=== PATIENT | male | born 1970 | race Caucasian/White ===

== ENCOUNTER 2017-10-20 07:45 | Outpatient (CLI) | payer BC | END 2017-10-20 07:46 | disposition home or self-care (01) | LOC: BICMRI 07:45 | PROVIDERS: ATTEND Neurological Surgery | DX: M25.511 Pain in right shoulder (principal); M67.80 Other specified disorders of synovium and tendon, unspecified site; S46.911A Strain of unspecified muscle, fascia and tendon at shoulder and upper arm level, right arm, initial encounter ==

== ENCOUNTER 2017-10-27 10:37 | Outpatient (CLI) | payer BC ==
--- NOTE | 2017-10-27 11:55 | RAD ---
THREE VIEWS CERVICAL SPINE: Date: 10-27-17 Comparison: None. History: Cervical spine pain, pain radiating down to the right arm. FINDINGS: The neutral lateral exam demonstrates anterolisthesis of C2 on C3 measuring 3 mm, C3 on C4 measuring 4 mm. There is retrolisthesis at C5-6 on neutral imaging measuring approximately 3 mm. With flexion t here is anterolisthesis of C2 on C3 measuring 4 mm and of C3 on C4 measuring 4 mm. The retrolisthesis at C5-6 is not seen with flexion. With extension, anterolisthesis of C2 on C3 measures 3 mm and ante rolisthesis of C3 on C4 measures 4 mm. The retrolisthesis at C5-6 on extension imaging measures 4 mm. There is disc space narrowing with anterior osteophyte formation at C3-4, C4-5, and C5-6. No prevert ebral soft tissue swelling. IMPRESSION: Areas of anterolisthesis and retrolisthesis within the cervical spine as described above. POS: BENEDICTO
== END 2017-10-27 10:38 | disposition home or self-care (01) ==
LOC: TBSIIMAG 10:37
PROVIDERS: ATTEND Neurological Surgery
DX: M54.2 Cervicalgia (principal); M43.12 Spondylolisthesis, cervical region
CPT/HCPCS: 72040

== ENCOUNTER 2019-10-28 09:08 | Inpatient (IN) | payer BC ==
[2019-10-28 09:36] LABS: #Eosinphils 0.1 thou/uL (0.0-0.7); #Lymphocytes 1.2 thou/uL (1.20-3.40); #Neutrophils 12.1 thou/uL (1.40-6.50); %Basophils 0.3 % (0.0-1.0); %Eosinophils 0.5 % (0.0-10.0); %Lymphocytes 8.4 % (21.0-51.0); %Monocytes 6.7 % (0.0-10.0); %Neutrophils 84.1 % (42.0-75.0); Hemoglobin 15.1 g/dL (14.0-18.0); Mean Corpuscular HGB CONC 33.7 g/dL (32.0-36.0); Mean Corpuscular Hemoglobin 28.6 pg (27.0-31.0); Mean Corpuscular Volume 84.9 fL (78.0-98.0); Mean Platelet Volume 8.8 fL (7.4-10.4); Platelet Count 297 thou/uL (130-400); RBC Distribution Width 13.8 % (11.5-14.5); Red Blood Cell (RBC) Count 5.27 mill/uL (4.70-6.10); White Blood Cell (WBC) Count 14.4 thou/uL (4.8-10.8)
--- NOTE | 2019-10-28 09:39 | RAD ---
Exam: Chest one view HISTORY:Cough Comparison: 11/07/2004 FINDINGS: Cardiac silhouette: Normal Aorta: Unremarkable Pulmonary vessels: Normal Costophrenic angles: Clear LUNGS: No masses or consolidation. Pneumothorax: None Osseous abnormalities: None IMPRESSION: No acute cardiopulmonary process.
[2019-10-28 09:58] LABS: ALT (SGPT) 31 U/L (8-55); AST (SGOT) 15 U/L (5-34); Albumin 3.8 g/dL (3.5-5.0); Alkaline Phosphatase 74 U/L (40-110); Anion Gap 15 mmol/L (10-20); BUN (Urea Nitrogen) 17 mg/dL (8.4-25.7); Bilirubin, Total 1.3 mg/dL (0.2-1.2); Calc. Creatinine Clearance 0 mL/min (70-130); Calcium 8.6 mg/dL (7.8-10.44); Carbon Dioxide 27 mmol/L (22-29); Chloride 98 mmol/L (98-107); Estimated GFR-MDRD 56; Globulin 3.1 g/dL (2.4-3.5); Glucose 210 mg/dL (70-105); Protein, Total 6.9 g/dL (6.0-8.3); Sodium 137 mmol/L (136-145)
[2019-10-28] MEDS ORDERED: Acetaminophen 500 MG TAB ONE (10:17)
[2019-10-28] MEDS ORDERED: Aspirin Chewable 81 MG TAB ONE (10:17)
[2019-10-28] MEDS ORDERED: Nitroglycerin 2% Ointment 1 INCH/1 GM Packet ONE (10:17)
[2019-10-28] MEDS ORDERED: Nitroglycerin 0.4 MG TAB 1 EACH ONE (10:17)
[2019-10-28 10:23] LABS: CKMB 5.9 ng/mL (0-6.6)
[2019-10-28] MEDS ORDERED: Enoxaparin Sodium 100 MG/ML SYRINGE ONE (11:06)
[2019-10-28 13:25] LABS: Troponin I 0.794 ng/mL (< 0.028)
[2019-10-28] MEDS ORDERED: Labetalol HCl 100 MG/20 ML VIAL SLOW IVP PRN (13:26)
[2019-10-28] MEDS ORDERED: Acetaminophen 325 MG TAB PO PRN (13:26)
[2019-10-28 14:25] VITALS: BMI 33.3
--- NOTE | 2019-10-28 14:52 | CON ---
DATE OF CONSULTATION: 10/28/2019 REASON FOR CONSULTATION: Elevated troponins and hypertension. HISTORY OF PRESENT ILLNESS: Mr. Sosa is a pleasant 49-year-old white gentleman, who comes to the hospital for lower extremity edema and shortness of breath. He was at home and has not been noticing for the last few weeks that he has to sleep with his head up. If he sleeps flat, he would wake up every hour and a half with shortness of breath and choking and he had to stand up and take deep breaths to feel better. He would lay back down for sleep in an hour and a half later the same thing would happen. He noticed his blood pressure was very high today and was having increased swelling, so he decided to come in for evaluation. I last saw Mr. Sosa in early 2017, at which point he was looking for a specialist to control his blood pressure. He told me at the same time he was seeing me that he was about to see a blood pressure specialist in [place] as he had very [id number] blood pressures. He was on several medications including hydralazine, clonidine, combination of valsartan and diuretics and his blood pressure is still in the 160s. An echocardiogram done at that time showed severe LVH with normal LV function, mild AI, mild MR. He followed up once after the echo, but then I have not seen him since. He apparently stopped all his medications in the last few months. I have a note from Dr. Sage back in August of 2019, at which point, he had not seen him in a year from that point and was on no blood pressure medications. He was started on nicardipine 30, and he has not seen him since. Currently, he denies any chest pain, tightness, or pressure. During his initial evaluation, troponins were elevated, so Cardiology has been consulted. PAST MEDICAL HISTORY: 1. Labile hypertension. 2. Hyperlipidemia. 3. Type 2 diabetes. 4. LVH. 5. Diastolic dysfunction. PAST SURGICAL HISTORY: None. FAMILY HISTORY: Noncontributory. OUTPATIENT MEDICATIONS: 1. Turmeric. 2. Nifedipine 30 mg a day. 3. Magnesium oxide 400 mg once a day. SOCIAL HISTORY: No alcohol, tobacco, or drugs. REVIEW OF SYSTEMS: A 12-point review of systems was done and was all negative unless stated in the History of Present Illness. PHYSICAL EXAMINATION: VITAL SIGNS: Temperature 98.2, pulse 105, respiratory rate 24, saturating 95% on room air, and blood pressure 184/116. GENERAL: Awake, alert, and oriented x3. No distress. HEENT: Normocephalic, atraumatic. NECK: Supple. LUNGS: Clear. CARDIOVASCULAR: S1 and S2. No S3. There is a positive S4. No murmurs or rubs. ABDOMEN: Soft. Positive bowel sounds. EXTREMITIES: 1+ edema. SKIN: Warm and dry. LABORATORY DATA: Laboratory work was reviewed. White count of 14, hemoglobin of 15, hematocrit of 44, and platelet count of 297. Chemistries; creatinine of 1.34 with GFR 56. His baseline has been in the 1 to 1.2 range. Potassium was low at 3.0. Troponin has been 0.74 and 0.79 with a BNP of 3368. IMAGING DATA: Chest x-ray was reviewed. No acute cardiopulmonary process. ASSESSMENT: 1. Hypertensive urgency. 2. Labile hypertension. 3. Noncompliance with medications. 4. Chronic kidney disease, stable. 5. Lower extremity edema, concern for left ventricular dysfunction. 6. Paroxysmal nocturnal dyspnea in the last few weeks. PLAN: 1. Blood pressure control. We will start some oral medications. This is probably the blood pressure he is running in the last few months. We will start with his hydralazine at 25 mg 3 times a day. Continue the nifedipine at 30. He is already started on losartan/hydrochlorothiazide at 50/12.5 daily as well. We would wean off the nifedipine drip if the blood pressure remains less than 180. 2. We will do an echocardiogram. 3. Continue to trend troponins, but most likely this is demand ischemia. Thank you for letting us to participate in the care of patient. We will follow. 30 minutes of critical care. Job ID: [id number]
[2019-10-28] MEDS: Potassium Chloride 20 MEQ TAB PO SCH (15:05)
[2019-10-28] MEDS: hydrALAZINE 25 MG TAB PO SCH ×2 (15:06→20:06)
--- NOTE | 2019-10-28 15:21 | HP ---
PRIMARY CARE PHYSICIAN: Dr. Gandhi CHIEF COMPLAINT: My legs are swollen. HISTORY OF PRESENT ILLNESS: Mr. Sosa is a pleasant 49-year-old gentleman, who has a history of he says resistant hypertension. He was in his usual state of health until about a week ago. Last Tuesday, he said he was diagnosed with pneumonia. Prior to that, he was having some cough and congestion and a little bit of shortness of breath primarily with the coughing. He says that he went to see his primary care physician at that time and it was noted that his blood pressure was around 220/120. He says he had not been really too worried about that because he has severe high blood pressure in the past. He says he has been to see multiple specialist. He says he has even seen a hypertension specialist in [place], whom they were never able to control his blood pressure. He says he got to the point where he just stopped taking the medicines because he says they were not helping anyway. More recently, he has seen Dr. Sage for his blood pressure, but he had seen Dr. Shaver and Dr. Sahu as well. He says that he came to the ER this time because he noticed swelling in his lower extremities. He denies any leg pain and he says he occasionally will wake up with some dyspnea, but it is not often. He says that because his legs were swelling, he knew it could be blood pressure problems and came to the ER. When he was seen in the emergency room, his blood pressure was found to be severely elevated with systolics in the 250s and diastolic in the 150 range. He was given 3 sublingual nitroglycerin and nitro patch was placed and he is being admitted for further evaluation. Currently, the patient says he feels fine. He says he feels healthy "in his own mind" and no other additional complaints. REVIEW OF SYSTEMS: All systems were reviewed and are negative except for that mentioned in the history of present illness. PAST MEDICAL HISTORY: Significant for hypertension. PAST SURGICAL HISTORY: Negative. ALLERGIES: TO PENICILLIN. SOCIAL HISTORY: He is . He has a son, who is 26 years old. He is a nonsmoker. He says he occasionally smokes marijuana. He does drink alcohol, but very rarely. He would like to be a full code and his mother or son could be his surrogate decision maker. FAMILY HISTORY: He says it is unknown because he is adopted. MEDICATIONS: Prior to admission, he had been on nifedipine 30 mg and losartan 50/12.5 on tablet daily and cefdinir 300 mg twice a day. PHYSICAL EXAMINATION: GENERAL: He is alert and oriented. He appears to be in no acute distress. He is lying up on the stretcher, watching TV, laughing and making jokes. His significant other is at the bedside. VITAL SIGNS: His blood pressure was 244/161, heart rate 115, respiratory rate of 20, and temperature is 98.1. HEENT: His head is atraumatic, normocephalic. Pupils are equal, round, and reactive to light. Extraocular muscles are intact. His sclerae are anicteric. Throat; no erythema, no exudates. NECK: No adenopathy. No bruits. He does have increased jugular venous distention. CARDIOVASCULAR: He has a normal S1 and S2. He did have an S4 and the PMI was laterally displaced. I did not appreciate any murmurs, however. No clicks or rubs. ABDOMEN: Soft. It is nontender, obese. Positive for bowel sounds. No rebound. No guarding. No organomegaly. EXTREMITIES: He has 2+ pitting edema bilaterally. There is no calf tenderness. No joint effusions. NEUROLOGIC: Grossly nonfocal with his muscle strength being 5/5 in both his upper and lower extremities. SKIN AND INTEGUMENT: No skin changes. No rash. LABORATORY DATA: The white blood cell count is 14.4, hemoglobin 15.1, hematocrit is 44.8, and platelet count is 297. The sodium was 137, potassium 3.0, chloride is 98, CO2 is 27, BUN of 17, creatinine 1.34, and glucose is 210. Troponin 0.745. BNP is 3368. IMAGING DATA: His EKG is sinus rhythm. The rate is 115. He does have voltage criteria for LVH and some nonspecific ST-T wave changes. His chest x-ray, he has cardiomegaly and increased pulmonary vascular marking. ASSESSMENT AND PLAN: 1. This is a pleasant 49-year-old gentleman, who presents with hypertensive emergency due to the shear elevation of his blood pressure as well as an elevation of his troponin. He will be admitted to the ICU, started on a Cardene drip. We will try to maintain his pressure initially around 180s to 190 systolic. An echocardiogram will be obtained. We will continue to trend his cardiac enzymes and consult Cardiology for further recommendations. 2. Chronic kidney disease in the setting of severe hypertension. We will consult Dr. Sage for recommendations as well. 3. He will be placed on deep venous thrombosis and gastrointestinal prophylaxis. Job ID: [id number]
[2019-10-28 16:21] LABS: Critical Call Chem Troponin I RESULT DECREASING; Troponin I 0.774 ng/mL (< 0.028)
[2019-10-28] MEDS: niCARdipine 25 MG in Sodium Chloride 0.9% 250 ML 240 ML IVPB SCH ×2 (18:03→22:30)
[2019-10-28] MEDS: cloNIDine 0.1 MG TAB PO PRN (18:03)
[2019-10-28] MEDS: Famotidine 20 MG TAB PO SCH (20:06)
[2019-10-28] MEDS ORDERED: guaiFENesin 200 MG TAB PO PRN (20:48)
[2019-10-28] MEDS ORDERED: Cefdinir 300 MG CAP PO SCH (21:00)
[2019-10-29 03:43] LABS: #Basophils 0.1 thou/uL (0.0-0.2); #Eosinphils 0.2 thou/uL (0.0-0.7); #Lymphocytes 1.2 thou/uL (1.20-3.40); #Monocytes 0.9 thou/uL (0.11-0.59); %Basophils 0.5 % (0.0-1.0); %Eosinophils 1.8 % (0.0-10.0); %Lymphocytes 11.1 % (21.0-51.0); %Neutrophils 77.7 % (42.0-75.0); Hemoglobin 13.4 g/dL (14.0-18.0); Mean Corpuscular HGB CONC 32.9 g/dL (32.0-36.0); Mean Corpuscular Hemoglobin 28.2 pg (27.0-31.0); Mean Corpuscular Volume 85.7 fL (78.0-98.0); Mean Platelet Volume 8.8 fL (7.4-10.4); Platelet Count 255 thou/uL (130-400); RBC Distribution Width 13.9 % (11.5-14.5); Red Blood Cell (RBC) Count 4.77 mill/uL (4.70-6.10); White Blood Cell (WBC) Count 10.3 thou/uL (4.8-10.8)
[2019-10-29 03:50] LABS: Anion Gap 11 mmol/L (10-20); BUN (Urea Nitrogen) 14 mg/dL (8.4-25.7); Calc. Creatinine Clearance 101 mL/min (70-130); Calcium 8.1 mg/dL (7.8-10.44); Carbon Dioxide 28 mmol/L (22-29); Chloride 105 mmol/L (98-107); Estimated GFR-MDRD 67; Glucose 166 mg/dL (70-105); Sodium 141 mmol/L (136-145)
[2019-10-29] MEDS: hydrALAZINE 20 MG/ML VIAL SLOW IVP PRN (03:59)
--- NOTE | 2019-10-29 07:09 | PRG ---
DATE OF SERVICE: 10/29/2019 SERVICE: Renal Medicine. SUBJECTIVE: Mr. Sosa is a 49-year-old white male, who was admitted for labile hypertension. He has also had superimposed acute kidney injury at that time and the feeling was that this was hemodynamically-mediated renal dysfunction. Renal function this morning is much improved and near normal. His blood pressure is also well controlled. He was also seen by Cardiology, Dr. Sahu, due to the high blood pressure as well as elevated troponin I. The patient's blood pressure medications have been adjusted. He has a cardiac echo, which showed the decreased EF. For that reason, carvedilol has been started with this patient. The patient voices no new complaints. No chest pain or shortness of breath. OBJECTIVE: VITAL SIGNS: Blood pressure 155/97, heart rate 86, respiratory rate is 17, pulse ox 96%. GENERAL: Awake, alert, comfortable, not in overt distress. SKIN: Adequate turgor. HEENT: He has pinkish conjunctivae. Anicteric sclerae. NECK: No neck mass. No carotid bruits. No JVD. CHEST: No deformities. LUNGS: Clear breath sounds. No wheezing. No crackles. HEART: Normal sinus rhythm. No murmur. No gallops. No rubs. ABDOMEN: Globular, soft, nontender. No masses. EXTREMITIES: No edema. No deformities. MEDICATIONS: Medications of October 29, 2019 reviewed. LABORATORY DATA: Laboratories of October 29, 2019; white count 10.3, hemoglobin 13.4. Sodium 141, potassium 3, chloride 105, carbon dioxide 28, BUN 14, creatinine 1.15, calcium 8.1, and glucose 166. Troponin I 0.774. BNP 3368. IMAGING STUDIES: Cardiac echo showed a decreased EF of 40% to 45%. Renal ultrasound with Doppler currently pending. ASSESSMENT AND PLAN: 1. Hypokalemia. Check plasma aldosterone and plasma renin. Rule out for secondary hyperaldosteronism with this patient. We will also recheck a magnesium level. Continue potassium supplementation. 2. Labile hypertension, improved. Continue current BP medications. 3. Acute kidney injury-superimposed hemodynamically-mediated renal dysfunction, much improved. Continue current management. 4. Decreased ejection fraction, currently on carvedilol. Cardiology is following. Job ID: [id number]
[2019-10-29] MEDS: Potassium Chloride 20 MEQ TAB PO SCH ×2 (08:23→16:05)
[2019-10-29] MEDS: Carvedilol 6.25 MG TAB PO SCH ×2 (08:23→16:06)
[2019-10-29] MEDS: NIFEdipine XL 30 MG TAB PO SCH (08:24)
[2019-10-29] MEDS: Famotidine 20 MG TAB PO SCH ×2 (08:24→20:20)
[2019-10-29] MEDS: hydrALAZINE 25 MG TAB PO SCH ×3 (08:24→20:20)
[2019-10-29] MEDS: Enoxaparin Sodium 40 MG/0.4 ML SYRINGE SC SCH (08:24)
[2019-10-29] MEDS: Cefdinir 300 MG CAP PO SCH ×2 (08:25→20:20)
--- NOTE | 2019-10-29 08:40 | PDOC.HOSPP ---
- Subjective Encounter Date: 10/29/19 Encounter Time: 08:38 Subjective: Mr. Ssoa was seen today in follow-up of hypertensive crisis. He does not have any complaints this morning. He denies chest pain or shortness of breath. He notes less leg swelling today. - Objective Vital Signs & Weight: Vital Signs (12 hours) Temp 10/29/19 05:00 98.0 F 10/29/19 00:00 98.3 F Weight Weight 199 lb 15.348 oz Most Recent Monitor Data Heart Rate from ECG 86 NIBP 155/97 NIBP BP-Mean 116 Respiration from ECG 17 SpO2 96 I&O: 10/28/19 10/29/19 10/30/19 06:59 06:59 06:59 Intake Total 2323 Output Total 6750 Balance -4427 Result Diagrams: 10/29/19 03:16 10/29/19 03:17 Hospitalist ROS - Medication Medications: Active Medications Generic Name Dose Route Start Last Admin Trade Name Freq PRN Reason Stop Dose Admin Acetaminophen 650 mg 10/28/19 13:26 10/28/19 15:06 Tylenol PO 650 mg Q4H PRN Administration Headache/Fever/Mild Pain (1-3) Carvedilol 12.5 mg 10/29/19 08:00 10/29/19 08:23 Coreg PO 12.5 mg BID-WM NIMA Administration Clonidine 0.1 mg 10/28/19 13:26 10/28/19 18:03 Catapres PO 0.1 mg Q4H PRN Administration SBP > _180___ Enoxaparin Sodium 40 mg 10/29/19 09:00 10/29/19 08:24 Lovenox SC 40 mg 0900 NIMA Administration Famotidine 20 mg 10/28/19 21:00 10/29/19 08:24 Pepcid PO 20 mg BID NIMA Administration Guaifenesin 200 mg 10/28/19 20:48 10/28/19 21:13 Organ-I Nr PO 200 mg Q4H PRN Administration Congestion Hydralazine HCl 10 mg 10/28/19 13:26 10/29/19 03:59 Apresoline SLOW IVP 10 mg Q4H PRN Administration SBP > 180 and HR < 70 Hydralazine HCl 25 mg 10/28/19 15:00 10/29/19 08:24 Apresoline PO 25 mg TID NIMA Administration Nifedipine 30 mg 10/29/19 09:00 10/29/19 08:24 Procardia Xl PO 30 mg DAILY NIMA Administration Cefdinir 300 Mg Cap 0 each 10/29/19 09:00 10/29/19 08:25 PO 1 each BID NIMA Administration Potassium Chloride 40 meq 10/28/19 17:00 10/29/19 08:23 K-Dur PO 40 meq BID-WM NIMA Administration - Exam Eye: PERRL, anicteric sclera Heart: RRR, no murmur, no rubs, normal peripheral pulses Heart - other findings: +S4 Respiratory: CTAB, no wheezes, no rales, no ronchi, normal chest expansion, no tachypnea, normal percussion Gastrointestinal: soft, non-tender, non-distended, normal bowel sounds, no palpable masses, no hepatomegaly Extremities: no cyanosis, no clubbing, 1+ LE edema Neurological: no focal deficits Psychiatric: normal affect, A&O x 3 Hosp A/P (1) Hypertensive crisis Code(s): I16.9 - HYPERTENSIVE CRISIS, UNSPECIFIED Status: Acute (2) Chronic systolic (congestive) heart failure Code(s): I50.22 - CHRONIC SYSTOLIC (CONGESTIVE) HEART FAILURE Status: Chronic (3) Obesity (BMI 30.0-34.9) Code(s): E66.9 - OBESITY, UNSPECIFIED Status: Chronic - Plan * Hypertensive crisis- continue Cardene drip, and will re-start his home medications- * Wean the drip as tolerated * Await work-up for Hyperaldosteronism * Chronic systolic heart failure- compensated- likely due to uncontrolled blood pressure * Replace potassium * Nephrology and Cardiology input appreciated * [facility] consult for calorie restriction and healthier weight
--- NOTE | 2019-10-29 08:48 | ULT ---
ULTRASOUND RETROPERITONEUM COMPLETE (RENAL) DOPPLER DUPLEX: DATE: 10/29/2018 HISTORY: 49-year-old male with chronic renal failure. TECHNIQUE: Lozano scale, color flow, and spectral analysis of bilateral kidneys and select renal artery segments a nd branches. FINDINGS: Highest peak systolic velocities in cm/s: Right renal artery: 52 Left renal artery: 40 Aorta: 56 Renal artery/aorta ratio: Right: 0.94 Left: 0.72 Resistive index: Right arcuate: 0.64 Left arcuate: 0.66 Right Kidney: 10.5 x 5.5 x 5.5 cm. Left Kidney: 11.0 x 6.0 x 6.0 cm. 2.5 x 2.5 x 2.5 cm right renal mid pole parenchymal cyst. No hydronephrosis. Urinary bladder not evaluated. IMPRESSION: 1. No hydronephrosis. 2. 2.5 cm right renal cyst. 3. No evidence of renal arterial hypertension. JN R POS: OFF
[2019-10-29] MEDS ORDERED: Prevnar 13-Val Conj/PF 0.5 ML SYRINGE IM ONE (09:00)
[2019-10-29] MEDS ORDERED: niCARdipine 25 MG in Sodium Chloride 0.9% 250 ML 240 ML IVPB SCH (09:15)
--- NOTE | 2019-10-29 09:53 | CON ---
DATE OF CONSULTATION: HISTORY OF PRESENT ILLNESS: Mr. Sosa is a 49-year-old white male with known history of labile hypertension and was admitted due to generalized edema. He initially presented to his primary care with some leg swelling. He was started on losartan with hydrochlorothiazide at that time. He has also been evaluated for high blood pressure by his dialysis specialist. We have seen this patient at clinic for further management of his hypertension. REVIEW OF SYSTEMS: Positive for leg edema. Denies any chest pain or shortness of breath. Occasional cough. No nausea. No vomiting. No diarrhea. No constipation. No dysuria. No urinary frequency. No hematochezia. No melena. No hematemesis. No headache. No diplopia. No syncopal episode. No shortness of breath. Appetite and energy level are fair. No headache. HOME MEDICATIONS: Include, 1. Losartan/hydrochlorothiazide 50/12.5 once a day. 2. Nifedipine 30 mg XL tablet once a day. HOSPITAL MEDICATIONS: Include the following; 1. Nifedipine 30 mg daily. 2. Nicardipine drip. 3. Labetalol 20 mg IV q.4 hours. 4. Hydralazine 25 mg p.o. t.i.d. 5. Lovenox 40 mg subcu daily. 6. Clonidine 0.1 mg q.4 p.r.n. 7. Acetaminophen 650 mg q.4. 8. KCl 40 mEq p.o. b.i.d. PAST MEDICAL HISTORY: Longstanding history of hypertension. PAST SURGICAL HISTORY: No significant surgeries. ALLERGIES: PENICILLIN. SOCIAL HISTORY: The patient lives in [place]. He has one child, who is 26 years old. He occasionally smokes marijuana, but no alcohol or any tobacco use at the present time. His education, some college courses. 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 He is , but has currently a live-in girlfriend. TRAUMA: None. IMMUNIZATIONS: Up-to-date. HOSPITALIZATIONS: Please see past medical history. FAMILY HISTORY: No family history of ESRD. PHYSICAL EXAMINATION: VITAL SIGNS: Blood pressure currently is 160/107 with heart rate of 101, respiratory rate 17, temperature is 98.2, and O2 saturation 96%. GENERAL: Noted to be awake, alert, sitting comfortable, not in distress. SKIN: Adequate turgor. HEENT: He has a pinkish conjunctivae. Anicteric sclerae. No neck mass. No carotid bruits. No JVD. CHEST: No deformities. LUNGS: Clear breath sounds. No wheezing. No crackles. HEART: Normal sinus rhythm. No murmur. No gallops. No rubs. ABDOMEN: Globular, soft, nontender. No masses. EXTREMITIES: No edema. No deformities. NEUROLOGIC: Awake, oriented to 3 spheres. Moving all extremities. No tremors. No asterixis. No ataxia. LABORATORY DATA: Laboratories of October 28, 2019; sodium 137, potassium 3, chloride 98, carbon dioxide 27, BUN 17, creatinine 1.34, GFR 56 mL/minute, glucose 210, calcium 8.6, AST 15, ALT 31. BNP is 3386. Troponin I 0.774. Cardiac echo shows an EF of 40% to 45%, evidence of diastolic dysfunction. Chest x-ray shows no CHF or infiltrates. ASSESSMENT AND PLAN: 1. Hypokalemia, p.r.n. potassium replacement. 2. Labile hypertension-I am unclear what workup was done by his physician back in [place]. Due to the hypokalemia, which should be a reflection of the current diuretic regimen, we may need to rule out the possibility of a primary hyperaldosteronism with this patient. We will order aldosterone and plasma renin with this patient. For the moment, agree with current management. Due to the decreased EF, I would probably suggest restart him on Carvedilol at 12.5 mg tablet b.i.d. 3. He will continue the other antihypertensive regimen. We will also order a renal ultrasound with Doppler studies with this patient. 4. Acute kidney injury-this simply may be a hemodynamically-mediated renal dysfunction. His urine sediment was benign. In addition, the protein spillage is very minimal to cause any anasarca for this patient. Overall, agree with current management. Job ID: [id number] MTDD
--- NOTE | 2019-10-29 14:03 | PDOC.CPN ---
- Subjective Date: 10/29/19 Time: 14:00 Interval history: He is doing much better. BP better controlled. No chest pain, SOB has improved. - Review of Systems General: denies: fever/chills, weight/appetite/sleep changes, night sweats, fatigue Respiratory: denies: cough, congestion, shortness of breath, exercise intolerance Cardiovascular: denies: chest pain, palpitation, edema, paroxysmal nocturnal dyspnea, orthopnea Gastrointestinal: denies: nausea, vomiting, diarrhea, constipation, abd pain, GI bleeding Musculoskeletal: denies: pain, tenderness, stiffness, swelling, arthritis/ arthralgias Neurological: denies: numbness, syncope, seizure, weakness - Objective Allergies/Adverse Reactions: Allergies Allergy/AdvReac Type Severity Reaction Status Date / Time Penicillins Allergy Verified 10/28/19 11:14 Visit Medications: Current Medications Acetaminophen (Tylenol) 650 mg PO Q4H PRN PRN Reason: Headache/Fever/Mild Pain (1-3) Last Admin: 10/28/19 15:06 Dose: 650 mg Carvedilol (Coreg) 12.5 mg PO BID-[facility] Last Admin: 10/29/19 08:23 Dose: 12.5 mg Clonidine (Catapres) 0.1 mg PO Q4H PRN PRN Reason: SBP > _180___ Last Admin: 10/28/19 18:03 Dose: 0.1 mg Enoxaparin Sodium (Lovenox) 40 mg SC 0900 [facility] Last Admin: 10/29/19 08:24 Dose: 40 mg Famotidine (Pepcid) 20 mg PO BID [facility] Last Admin: 10/29/19 08:24 Dose: 20 mg Guaifenesin (Organ-I Nr) 200 mg PO Q4H PRN PRN Reason: Congestion Last Admin: 10/28/19 21:13 Dose: 200 mg HCTZ/Losartan Potassium (Hyzaar 50/12.5) 1 tab PO DAILY [facility] Last Admin: 10/29/19 09:51 Dose: 1 tab Hydralazine HCl (Apresoline) 10 mg SLOW IVP Q4H PRN PRN Reason: SBP > 180 and HR < 70 Last Admin: 10/29/19 03:59 Dose: 10 mg Hydralazine HCl (Apresoline) 25 mg PO TID [facility] Last Admin: 10/29/19 08:24 Dose: 25 mg Nicardipine HCl 25 mg/ Sodium (Chloride) 250 mls @ 0 mls/hr IVPB INF NIMA; Protocol Labetalol HCl (Normodyne) 20 mg SLOW IVP Q4H PRN PRN Reason: SBP > 180 and HR >/= 70 Nifedipine (Procardia Xl) 30 mg PO DAILY [facility] Last Admin: 10/29/19 08:24 Dose: 30 mg Cefdinir 300 Mg Cap 0 each PO BID [facility] Last Admin: 10/29/19 08:25 Dose: 1 each Potassium Chloride (K-Dur) 40 meq PO BID-[facility] Last Admin: 10/29/19 08:23 Dose: 40 meq Vital Signs & Weight: Vital Signs Temp Pulse Ox 10/29/19 08:00 98.4 F 95 10/29/19 05:00 98.0 F Weight 199 lb 15.348 oz - Physical Exam General: alert & oriented x3 HEENT: mucus membranes moist Neck: supple neck Cardiac: regular rate and rhythm Lungs: clear to auscultation Neuro: grossly intact Abdomen: active bowel sounds Extremities: 1+ LE edema Skin: clear Musculoskeletal: no pain - Labs Result Diagrams: 10/29/19 03:16 10/29/19 03:17 Troponin/CKMB CK-MB (CK-2) 5.9 ng/mL (0-6.6) 10/28/19 09:27 Troponin I 0.774 ng/mL (< 0.028) H* 10/28/19 15:29 - Telemetry Sinus rhythms and dysrhythmias: sinus rhythm - Assessment/Plan Assessment/Plan: 1. HTN urgency 2. Acute on chronic systolic and diastolic CHF 3. Medication non compliance. 4. Labile HTN 5. Chronic kidney disease. 6. Systolic dysfunction EF at 40-45% 7. NSTEMI, type 2 demand ischemia most likely. 8. LVH 9. Hypokalemia PLAN: - Continue current meds for BP control - Creatinine normal now. - Once he is able to lay flat will plan on risk stratification with [facility]. - Secondary work up for HTN as he is hypokalemic. Plasma renin, aldosterone level, plasma metanephrines. Renal doppler US/may need MRI if images not adequate. - Critical Care Time Critical care time (mins): 30
[2019-10-29] MEDS ORDERED: guaiFENesin ER 600 MG TAB PO SCH (15:15)
--- NOTE | 2019-10-30 02:23 | CON ---
DATE OF CONSULTATION: HISTORY OF PRESENT ILLNESS: Mr. Sosa is a very pleasant gentleman, says he has had hypertension for quite some time and had difficulty controlling his blood pressure. He has never had a sleep study. He said he had one in the distant past. He presented with complaints of shortness of breath, stating that he is unable to lie down flat. He is blaming this on an antibiotic he had received. He has not been compliant with followup with his clearance representative. He does have a history of severe left ventricular hypertrophy. PAST MEDICAL HISTORY: Remarkable also for lipid disorder, diabetes, and diastolic dysfunction. SOCIAL HISTORY: He is a nonsmoker and nondrinker. REVIEW OF SYSTEMS: Ten point review of systems otherwise negative. MEDICATIONS: Have been reviewed. PHYSICAL EXAMINATION: VITAL SIGNS: Currently, blood pressure is controlled; apparently, it was very elevated on admission, it is 146/99, heart rate 84, oximetry is 94% on room air. He is afebrile. HEENT: Pupils are equal. Sclerae are anicteric. NECK: Supple. No lymphadenopathy. LUNGS: Clear. HEART: Regular rhythm. S1, S2 are normal. ABDOMEN: Soft and nontender. EXTREMITIES: Without clubbing, cyanosis, or edema. LABORATORY DATA: White count 10.3, hemoglobin 13.4, platelets 255. Sodium 141, potassium 3, chloride 105, bicarb 28, BUN 14, creatinine 1.15. IMPRESSION: 1. Poorly-controlled hypertension. 2. Hypertensive diastolic dysfunction with left ventricular hypertrophy. 3. Possible sleep apnea, which may make his blood pressure a little more difficult to control if he is not treating his sleep apnea. 4. Elevated creatinine yesterday, it is normalized today. I met with Mr. Sosa, answered all of his questions. I will be happy to follow while he is in the hospital. At discharge, I would be happy to set him up for an outpatient sleep study; a home study may be of the best start and is likely to be met with more compliance. Job ID: [id number]
[2019-10-30] MEDS: hydrALAZINE 20 MG/ML VIAL SLOW IVP PRN (04:06)
[2019-10-30 04:35] LABS: Anion Gap 11 mmol/L (10-20); BUN (Urea Nitrogen) 22 mg/dL (8.4-25.7); Calc. Creatinine Clearance 78 mL/min (70-130); Calcium 8.4 mg/dL (7.8-10.44); Carbon Dioxide 27 mmol/L (22-29); Chloride 106 mmol/L (98-107); Estimated GFR-MDRD 52; Glucose 146 mg/dL (70-105); Potassium 3.5 mmol/L (3.5-5.1); Sodium 140 mmol/L (136-145)
[2019-10-30] MEDS: cloNIDine 0.1 MG TAB PO PRN (04:45)
[2019-10-30] MEDS ORDERED: diphenhydrAMINE 50 MG CAP PO SCH (05:30)
[2019-10-30] MEDS: Enoxaparin Sodium 40 MG/0.4 ML SYRINGE SC SCH (07:32)
[2019-10-30] MEDS: Carvedilol 6.25 MG TAB PO SCH ×2 (07:33→17:14)
[2019-10-30] MEDS: Potassium Chloride 20 MEQ TAB PO SCH ×2 (07:33→17:14)
[2019-10-30] MEDS: Famotidine 20 MG TAB PO SCH ×2 (07:33→21:03)
[2019-10-30] MEDS: NIFEdipine XL 30 MG TAB PO SCH (08:50)
[2019-10-30] MEDS: hydrALAZINE 25 MG TAB PO SCH ×3 (08:51→21:03)
[2019-10-30] MEDS: guaiFENesin ER 600 MG TAB PO SCH ×2 (08:51→21:04)
[2019-10-30] MEDS: Cefdinir 300 MG CAP PO SCH ×2 (08:51→21:06)
--- NOTE | 2019-10-30 08:51 | PDOC.HOSPP ---
- Subjective Encounter Date: 10/30/19 Encounter Time: 08:49 Subjective: Mr. Sosa was seen today in follow-up of hypertensive crisis. He does not have any new complaints. He isbeginning to become a bit worried about his blood pressure. - Objective Vital Signs & Weight: Vital Signs (12 hours) Pulse Resp BP Pulse Ox 10/30/19 08:04 91 15 98 10/30/19 07:33 157/106 H 10/30/19 04:45 162/121 H 10/30/19 04:06 85 162/121 H 10/30/19 00:56 85 19 93 L Weight Weight 201 lb 8.04 oz Most Recent Monitor Data Heart Rate from ECG 87 NIBP 162/121 NIBP BP-Mean 134 Respiration from ECG 20 SpO2 93 I&O: 10/29/19 10/30/19 10/31/19 06:59 06:59 06:59 Intake Total 2323 1510 Output Total 6750 1400 Balance -4427 110 Result Diagrams: 10/29/19 03:16 10/30/19 04:01 Hospitalist ROS - Medication Medications: Active Medications Generic Name Dose Route Start Last Admin Trade Name Freq PRN Reason Stop Dose Admin Acetaminophen 650 mg 10/28/19 13:26 10/28/19 15:06 Tylenol PO 650 mg Q4H PRN Administration Headache/Fever/Mild Pain (1-3) Albuterol/Ipratropium 3 ml 10/29/19 19:00 10/30/19 08:04 Duoneb NEB 3 ml [id number] NIMA Administration Carvedilol 12.5 mg 10/29/19 08:00 10/30/19 07:33 Coreg PO 12.5 mg BID-WM NIMA Administration Clonidine 0.1 mg 10/28/19 13:26 10/30/19 04:45 Catapres PO 0.1 mg Q4H PRN Administration SBP > _180___ Enoxaparin Sodium 40 mg 10/29/19 09:00 10/30/19 07:32 Lovenox SC 40 mg 0900 NIMA Administration Famotidine 20 mg 10/28/19 21:00 10/30/19 07:33 Pepcid PO 20 mg BID NIMA Administration Guaifenesin 200 mg 10/28/19 20:48 10/28/19 21:13 Organ-I Nr PO 200 mg Q4H PRN Administration Congestion HCTZ/Losartan Potassium 1 tab 10/29/19 09:00 10/29/19 09:51 Hyzaar 50/12.5 PO 1 tab DAILY NIMA Administration Hydralazine HCl 10 mg 10/28/19 13:26 10/30/19 04:06 Apresoline SLOW IVP 10 mg Q4H PRN Administration SBP > 180 and HR < 70 Hydralazine HCl 25 mg 10/28/19 15:00 10/29/19 20:20 Apresoline PO 25 mg TID NIMA Administration Nifedipine 30 mg 10/29/19 09:00 10/29/19 08:24 Procardia Xl PO 30 mg DAILY NIMA Administration Cefdinir 300 Mg Cap 0 each 10/29/19 09:00 10/29/19 20:20 PO 1 each BID NIMA Administration Potassium Chloride 40 meq 10/28/19 17:00 10/30/19 07:33 K-Dur PO 40 meq BID-WM NIMA Administration - Exam Eye: PERRL Heart: RRR, no murmur, no gallops, no rubs, normal peripheral pulses Respiratory: CTAB, no wheezes, no rales, no ronchi, normal chest expansion Gastrointestinal: soft, non-tender, non-distended, normal bowel sounds, no palpable masses, no hepatomegaly Extremities: no cyanosis, no clubbing (trace pedal edema) Hosp A/P (1) Hypertensive crisis Code(s): I16.9 - HYPERTENSIVE CRISIS, UNSPECIFIED Status: Acute (2) Chronic systolic (congestive) heart failure Code(s): I50.22 - CHRONIC SYSTOLIC (CONGESTIVE) HEART FAILURE Status: Chronic (3) Obesity (BMI 30.0-34.9) Code(s): E66.9 - OBESITY, UNSPECIFIED Status: Chronic - Plan * Hypertensive crisis- he has been weaned off Cardene. Dr. Sage has recommended starting Minoxidil * I have discussed potential adverse reaction to different blood pressure medications, and discussed alternative to dealing with the symptoms, if this is affecting his compliance * Work-up for secondary causes of HTN is in progress * Agree with Outpatient sleep study * Chronic systolic heart failure- compensated- likely due to uncontrolled blood pressure
--- NOTE | 2019-10-30 08:55 | PRG ---
DATE OF SERVICE: 10/30/2019 SERVICE: Renal Medicine. SUBJECTIVE: Mr. Sosa is a 49-year-old white male, followed up by the Renal Service for his acute kidney injury as well as labile hypertension. Creatinine has been fluctuating. His creatinine has improved to normal, but losartan/hydrochlorothiazide was restarted and the creatinine is noted to be slightly higher at 1.44. This most likely a reflection of those 2 medications. Blood pressure is slightly not well controlled. Renal ultrasound with Doppler study showed within normal findings with no evidence of renovascular hypertension. He also was found to be hypokalemic. For that reason, a plasma aldosterone and plasma renin have been ordered. It is still currently pending. No new complaints today. He is feeling better. OBJECTIVE: VITAL SIGNS: Blood pressure is 157/106, heart rate 91, respiratory rate 18, O2 saturation 98%. GENERAL: Awake, alert, comfortable, not in distress. SKIN: Adequate turgor. HEENT: He has a pinkish conjunctivae. Anicteric sclerae. NECK: No neck mass. No carotid bruits. No JVD. CHEST: No deformities. LUNGS: Clear breath sounds. No wheezing. No crackles. HEART: Normal sinus rhythm. No murmur. No gallops. No rubs. ABDOMEN: Globular, soft, nontender. No masses. EXTREMITIES: No edema. No deformities. MEDICATIONS: Medications of October 30, 2019, were reviewed. LABORATORY DATA: Laboratories of October 29, 2019, white count 10.3, hemoglobin 13.4. October 30, 2019, sodium 140, potassium 3.5, chloride 106, carbon dioxide 27, BUN 22, creatinine 1.44, calcium is 8.4. ASSESSMENT AND PLAN: 1. Labile hypertension-plasma aldosterone and plasma renin are pending. We will proceed with a 24-hour urine for aldosterone and for 5-HIAA. We will rule out this patient for any underlying secondary hypertension. Please note, renal artery Doppler showed no evidence of renal artery stenosis. I have decided to add minoxidil 2.5 mg tablet q.a.m. for better blood pressure control. Once I finished a 24-hour urine for aldosterone, we will start him on spironolactone 25 mg tablet once a day. 2. Acute kidney injury, fluctuating creatinine. Most likely a reflection of losartan/hydrochlorothiazide. Continue to observe. 3. Agree with current management. Recheck basic metabolic panel in a.m. Job ID: [id number]
[2019-10-30] MEDS ORDERED: Minoxidil 2.5 MG TAB PO SCH (09:00)
--- NOTE | 2019-10-30 22:57 | PRG ---
DATE OF SERVICE: 10/30/2019 SUBJECTIVE: Korey Sosa has no complaints. He denies being short of breath. He says that for the last 2 years, he has intermittently been wheezing. OBJECTIVE: VITAL SIGNS: He is afebrile. Heart rate is in the 90s, blood pressure 135/74, oximetry is 98% on room air. LUNGS: Actually remarkable for faint wheezes, more on the right than on the left posteriorly. HEART: Regular rhythm. ABDOMEN: Soft and nontender. EXTREMITIES: Without edema. LABORATORY DATA: White count 10.3, hemoglobin 13.4. Electrolytes are normal, creatinine is 1.44 up from yesterday of 1.15. Intake and output today was positive 110. IMPRESSION: 1. Poorly controlled hypertension. 2. ? untreated sleep apnea. 3. Acute on chronic kidney disease, likely related to his hypertension. 4. History of medical noncompliance. PLAN: Continue ongoing efforts to blood pressure control. He will need an outpatient sleep study. Job ID: [id number]
[2019-10-31 04:35] LABS: Anion Gap 12 mmol/L (10-20); BUN (Urea Nitrogen) 23 mg/dL (8.4-25.7); Calc. Creatinine Clearance 67 mL/min (70-130); Calcium 8.4 mg/dL (7.8-10.44); Carbon Dioxide 26 mmol/L (22-29); Chloride 105 mmol/L (98-107); Estimated GFR-MDRD 43; Glucose 126 mg/dL (70-105); Potassium 3.7 mmol/L (3.5-5.1); Sodium 139 mmol/L (136-145)
[2019-10-31] MEDS: Enoxaparin Sodium 40 MG/0.4 ML SYRINGE SC SCH (08:45)
[2019-10-31] MEDS: guaiFENesin ER 600 MG TAB PO SCH ×2 (08:46→21:25)
[2019-10-31] MEDS: hydrALAZINE 25 MG TAB PO SCH ×3 (08:46→21:25)
[2019-10-31] MEDS: Carvedilol 6.25 MG TAB PO SCH ×2 (08:47→18:01)
[2019-10-31] MEDS: Famotidine 20 MG TAB PO SCH ×2 (08:47→21:25)
[2019-10-31] MEDS: Potassium Chloride 20 MEQ TAB PO SCH ×2 (08:47→18:02)
[2019-10-31] MEDS: NIFEdipine XL 30 MG TAB PO SCH (08:47)
[2019-10-31] MEDS: Minoxidil 2.5 MG TAB PO SCH (08:50)
[2019-10-31] MEDS: Cefdinir 300 MG CAP PO SCH ×2 (08:50→21:26)
--- NOTE | 2019-10-31 08:57 | PRG ---
DATE OF SERVICE: 10/31/2019 SUBJECTIVE: Mr. Sosa is a 49-year-old white male with longstanding hypertension, admitted for labile hypertension as well as for an acute kidney injury. At that time, creatinine spontaneously improved. However, losartan was restarted and the creatinine has worsened again. No new complaints today. He is doing well. He is being worked up for secondary hypertension. Renal ultrasound with Doppler was negative. Awaiting 24 hour urine for pheochromocytoma as well as for hyperaldosteronism. His plasma aldosterone and plasma renin is still currently pending. He feels better. OBJECTIVE: VITAL SIGNS: Blood pressure 143/96, heart rate 86, respiratory rate 18, temperature 97.9, pulse ox 97%. GENERAL: Noted to be awake, alert, comfortable, not in overt distress. SKIN: Adequate turgor. HEENT: He has a pinkish conjunctivae. Anicteric sclerae. NECK: No neck mass. No carotid bruits. No JVD. CHEST: No deformities. LUNGS: Clear breath sounds. HEART: Normal sinus rhythm. No murmurs, gallops, or rubs. ABDOMEN: Globular, soft, nontender, no masses. EXTREMITIES: No edema. No deformities. MEDICATIONS: Medications of October 31, 2019, were reviewed. LABORATORY DATA: Laboratories of October 31, 2019; sodium 139, potassium 3.7, chloride 105, carbon dioxide 26, BUN 23, creatinine 1.68, glucose 126, calcium 8.4. ASSESSMENT AND PLAN: 1. Acute kidney injury-creatinine high at 1.68. We will discontinue losartan/hydrochlorothiazide. No indication for any dialytic intervention. Hold off any IV fluid for the moment. 2. Labile hypertension. In view of discontinuation of the losartan/hydrochlorothiazide, I have increased his minoxidil from 2.5 to 5 mg tablet once a day. Workup for secondary hypertension is undergoing, awaiting the 24 hour urine for aldosterone as well as pheochromocytoma workup. 3. Recheck basic metabolic profile and CBC in a.m. Job ID: [id number]
--- NOTE | 2019-10-31 11:11 | PDOC.HOSPP ---
- Subjective Encounter Date: 10/31/19 Encounter Time: 11:08 Subjective: Mr. Sosa was seen today in follow-up of hypertensive crisis. He says he feels great, like he could run a marathon. - Objective Vital Signs & Weight: Vital Signs (12 hours) Temp Pulse Resp BP BP BP Pulse Ox 10/31/19 08:47 88 163/94 H 10/31/19 08:46 88 10/31/19 07:52 98.0 F 88 12 163/94 H 99 10/31/19 07:50 98 10/31/19 07:48 93 16 98 10/31/19 03:35 97.9 F 86 18 143/96 H 97 10/31/19 01:58 100 10/30/19 23:10 85 132/87 Weight Weight 206 lb Most Recent Monitor Data Heart Rate from ECG 79 NIBP 133/91 NIBP BP-Mean 105 Respiration from ECG 7 SpO2 100 I&O: 10/30/19 10/31/19 11/01/19 06:59 06:59 06:59 Intake Total 1510 2210 Output Total 1400 2500 Balance 110 -290 Result Diagrams: 10/29/19 03:16 10/31/19 03:59 Hospitalist ROS - Medication Medications: Active Medications Generic Name Dose Route Start Last Admin Trade Name Freq PRN Reason Stop Dose Admin Acetaminophen 650 mg 10/28/19 13:26 10/28/19 15:06 Tylenol PO 650 mg Q4H PRN Administration Headache/Fever/Mild Pain (1-3) Albuterol/Ipratropium 3 ml 10/29/19 19:00 10/31/19 07:48 Duoneb NEB 3 ml [id number] NIMA Administration Carvedilol 12.5 mg 10/29/19 08:00 10/31/19 08:47 Coreg PO 12.5 mg BID-WM NIMA Administration Clonidine 0.1 mg 10/28/19 13:26 10/30/19 04:45 Catapres PO 0.1 mg Q4H PRN Administration SBP > _180___ Enoxaparin Sodium 40 mg 10/29/19 09:00 10/31/19 08:45 Lovenox SC 40 mg 0900 NIMA Administration Famotidine 20 mg 10/28/19 21:00 10/31/19 08:47 Pepcid PO 20 mg BID NIMA Administration Guaifenesin 200 mg 10/28/19 20:48 10/28/19 21:13 Organ-I Nr PO 200 mg Q4H PRN Administration Congestion Guaifenesin 600 mg 10/30/19 09:00 10/31/19 08:46 Mucinex PO 600 mg Q12HR NIMA Administration Hydralazine HCl 10 mg 10/28/19 13:26 10/30/19 04:06 Apresoline SLOW IVP 10 mg Q4H PRN Administration SBP > 180 and HR < 70 Hydralazine HCl 25 mg 10/28/19 15:00 10/31/19 08:46 Apresoline PO 25 mg TID NIMA Administration Minoxidil 5 mg 10/31/19 09:00 10/31/19 08:50 Minoxidil PO 5 mg DAILY NIMA Administration Nifedipine 30 mg 10/29/19 09:00 10/31/19 08:47 Procardia Xl PO 30 mg DAILY NIMA Administration Cefdinir 300 Mg Cap 0 each 10/29/19 09:00 10/31/19 08:50 PO 1 each BID NIMA Administration Potassium Chloride 40 meq 10/28/19 17:00 10/31/19 08:47 K-Dur PO 40 meq BID-WM NIMA Administration - Exam Eye: PERRL Heart: RRR, no murmur, no gallops, no rubs, normal peripheral pulses Respiratory: CTAB, no wheezes, no rales, no ronchi, normal chest expansion, no tachypnea, normal percussion Gastrointestinal: soft, non-tender, non-distended, normal bowel sounds, no palpable masses, no hepatomegaly Extremities: 1+ LE edema (trace pedal edema in the lower extremities) Hosp A/P (1) Hypertensive crisis Code(s): I16.9 - HYPERTENSIVE CRISIS, UNSPECIFIED Status: Acute (2) Chronic systolic (congestive) heart failure Code(s): I50.22 - CHRONIC SYSTOLIC (CONGESTIVE) HEART FAILURE Status: Chronic (3) Obesity (BMI 30.0-34.9) Code(s): E66.9 - OBESITY, UNSPECIFIED Status: Chronic - Plan * Hypertensive crisis- he has been weaned off Cardene.his blood pressure is much improved after the addition of Minoxidil * Awaiting the completion of the 24 hour urine * Acute kidney injury- I suspect related to the drop in his blood pressure- this should improve hopefully in a day ot 2 * Agree with Outpatient sleep study * Chronic systolic heart failure- compensated
--- NOTE | 2019-10-31 16:47 | PRG ---
DATE OF SERVICE: 10/31/2019 SUBJECTIVE: Mr. Sosa is in no distress. He is anticipating might go home today, but he is not sure. OBJECTIVE: VITAL SIGNS: He is afebrile. Heart rate is in the 90s, respiratory rate in the teens, oximetry is 96% on room air, and blood pressure is still intermittently elevated with diastolics as high as 102 this afternoon. LUNGS: Clear. HEART: Regular rhythm. ABDOMEN: Soft. IMPRESSION: ? Untreated sleep apnea. PLAN: Auto titrating CPAP tonight, if he is still here. Also, set him up for a home sleep study once he is out of here. We will treat him with auto titrating CPAP as an outpatient, if he has severe sleep apnea and then, we will probably do an in-house titration. Job ID: [id number]
--- NOTE | 2019-10-31 17:57 | PDOC.CPN ---
- Subjective Date: 10/31/19 Time: 17:54 Interval history: He feels well. No chest pain or SOB. BP still labile. Improved with ARB and diuretic but creatinine increased. - Review of Systems General: denies: fever/chills, weight/appetite/sleep changes, night sweats, fatigue Respiratory: denies: cough, congestion, shortness of breath, exercise intolerance Cardiovascular: denies: chest pain, palpitation, edema, paroxysmal nocturnal dyspnea, orthopnea Gastrointestinal: denies: nausea, vomiting, diarrhea, constipation, abd pain, GI bleeding Musculoskeletal: denies: pain, tenderness, stiffness, swelling, arthritis/ arthralgias Neurological: denies: numbness, syncope, seizure, weakness - Objective Allergies/Adverse Reactions: Allergies Allergy/AdvReac Type Severity Reaction Status Date / Time Penicillins Allergy Verified 10/28/19 11:14 Visit Medications: Current Medications Acetaminophen (Tylenol) 650 mg PO Q4H PRN PRN Reason: Headache/Fever/Mild Pain (1-3) Last Admin: 10/28/19 15:06 Dose: 650 mg Albuterol/Ipratropium (Duoneb) 3 ml NEB [id number] [facility] Last Admin: 10/31/19 13:19 Dose: 3 ml Carvedilol (Coreg) 12.5 mg PO BID-WM [facility] Last Admin: 10/31/19 08:47 Dose: 12.5 mg Clonidine (Catapres) 0.1 mg PO Q4H PRN PRN Reason: SBP > _180___ Last Admin: 10/30/19 04:45 Dose: 0.1 mg Enoxaparin Sodium (Lovenox) 40 mg SC 0900 [facility] Last Admin: 10/31/19 08:45 Dose: 40 mg Famotidine (Pepcid) 20 mg PO BID [facility] Last Admin: 10/31/19 08:47 Dose: 20 mg Guaifenesin (Organ-I Nr) 200 mg PO Q4H PRN PRN Reason: Congestion Last Admin: 10/28/19 21:13 Dose: 200 mg Guaifenesin (Mucinex) 600 mg PO Q12HR [facility] Last Admin: 10/31/19 08:46 Dose: 600 mg Hydralazine HCl (Apresoline) 10 mg SLOW IVP Q4H PRN PRN Reason: SBP > 180 and HR < 70 Last Admin: 10/30/19 04:06 Dose: 10 mg Hydralazine HCl (Apresoline) 25 mg PO TID [facility] Last Admin: 10/31/19 15:18 Dose: 25 mg Nicardipine HCl 25 mg/ Sodium (Chloride) 250 mls @ 0 mls/hr IVPB INF [facility]; Protocol Labetalol HCl (Normodyne) 20 mg SLOW IVP Q4H PRN PRN Reason: SBP > 180 and HR >/= 70 Minoxidil (Minoxidil) 5 mg PO DAILY [facility] Last Admin: 10/31/19 08:50 Dose: 5 mg Nifedipine (Procardia Xl) 30 mg PO DAILY [facility] Last Admin: 10/31/19 08:47 Dose: 30 mg Cefdinir 300 Mg Cap 0 each PO BID [facility] Last Admin: 10/31/19 08:50 Dose: 1 each Potassium Chloride (K-Dur) 40 meq PO BID-[facility] Last Admin: 10/31/19 08:47 Dose: 40 meq Vital Signs & Weight: Vital Signs Temp Pulse Resp BP BP BP Pulse Ox 10/31/19 15:18 94 10/31/19 15:15 98.6 F 94 18 164/102 H 96 10/31/19 13:19 68 16 98 10/31/19 08:47 88 163/94 H 10/31/19 08:46 88 10/31/19 07:52 98.0 F 88 12 163/94 H 99 10/31/19 07:50 98 10/31/19 07:48 93 16 98 Weight 206 lb - Physical Exam General: alert & oriented x3 HEENT: mucus membranes moist, normocephaly Neck: supple neck, midline trachea Cardiac: regular rate and rhythm Lungs: clear to auscultation Neuro: grossly intact Abdomen: active bowel sounds Extremities: 1+ LE edema Skin: clear Musculoskeletal: no pain - Labs Result Diagrams: 10/29/19 03:16 10/31/19 03:59 Troponin/CKMB CK-MB (CK-2) 5.9 ng/mL (0-6.6) 10/28/19 09:27 Troponin I 0.774 ng/mL (< 0.028) H* 10/28/19 15:29 - Telemetry Sinus rhythms and dysrhythmias: sinus rhythm - Assessment/Plan Assessment/Plan: 1. HTN urgency 2. Acute on chronic systolic and diastolic CHF 3. Medication non compliance. 4. Labile HTN 5. Chronic kidney disease. 6. Systolic dysfunction EF at 40-45% 7. NSTEMI, type 2 demand ischemia most likely. 8. LVH 9. Hypokalemia PLAN: - Continue current meds for BP control - Creatinine increasing again. - Secondary work up for HTN pending. - Cannot do LHC as creatinine is worsening now. May be worsening due to relative renal hypoperfusion as his kidneys are most likely used to high pressures and when we lowered it to normal levels he bumped his creatinine. - Dr. Sage following and managing his BP.
[2019-11-01 05:04] LABS: Anion Gap 11 mmol/L (10-20); BUN (Urea Nitrogen) 25 mg/dL (8.4-25.7); Calc. Creatinine Clearance 63 mL/min (70-130); Calcium 8.2 mg/dL (7.8-10.44); Carbon Dioxide 25 mmol/L (22-29); Chloride 108 mmol/L (98-107); Estimated GFR-MDRD 39; Glucose 134 mg/dL (70-105); Potassium 3.9 mmol/L (3.5-5.1); Sodium 140 mmol/L (136-145)
[2019-11-01] MEDS: NIFEdipine XL 30 MG TAB PO SCH (08:01)
[2019-11-01] MEDS: Potassium Chloride 20 MEQ TAB PO SCH (08:01)
[2019-11-01] MEDS: Minoxidil 2.5 MG TAB PO SCH (08:01)
[2019-11-01] MEDS: guaiFENesin ER 600 MG TAB PO SCH (08:01)
[2019-11-01] MEDS: Carvedilol 6.25 MG TAB PO SCH (08:02)
[2019-11-01] MEDS: Famotidine 20 MG TAB PO SCH (08:02)
[2019-11-01] MEDS: hydrALAZINE 25 MG TAB PO SCH (08:02)
[2019-11-01] MEDS: Cefdinir 300 MG CAP PO SCH (08:02)
[2019-11-01] MEDS: Enoxaparin Sodium 40 MG/0.4 ML SYRINGE SC SCH (08:02)
[2019-11-01] MEDS ORDERED: Spironolactone 25 MG TAB PO SCH (09:00)
--- NOTE | 2019-11-01 09:16 | PDOC.HOSPP ---
- Subjective Encounter Date: 11/01/19 Encounter Time: 09:15 Subjective: Mr. Sosa was seen today in follow-up of hypertensive urgency. He does not have any new complaints. - Objective Vital Signs & Weight: Vital Signs (12 hours) Temp Pulse Resp BP BP BP Pulse Ox 11/01/19 08:02 85 180/109 H 11/01/19 08:01 85 11/01/19 07:22 96 11/01/19 07:21 89 16 96 11/01/19 04:00 97.7 F 75 16 155/98 H 99 11/01/19 02:52 72 16 98 11/01/19 01:07 78 15 98 11/01/19 01:04 78 15 98 11/01/19 00:00 158/99 H 10/31/19 21:25 78 10/31/19 21:19 98.7 F 78 20 165/101 H 95 Weight Weight 204 lb 11.2 oz Most Recent Monitor Data Heart Rate from ECG 79 NIBP 133/91 NIBP BP-Mean 105 Respiration from ECG 7 SpO2 100 I&O: 10/31/19 11/01/19 11/02/19 06:59 06:59 06:59 Intake Total 2210 640 Output Total 2500 Balance -290 640 Result Diagrams: 10/29/19 03:16 11/01/19 04:21 Hospitalist ROS - Medication Medications: Active Medications Generic Name Dose Route Start Last Admin Trade Name Freq PRN Reason Stop Dose Admin Acetaminophen 650 mg 10/28/19 13:26 10/28/19 15:06 Tylenol PO 650 mg Q4H PRN Administration Headache/Fever/Mild Pain (1-3) Albuterol/Ipratropium 3 ml 10/29/19 19:00 11/01/19 07:21 Duoneb NEB 3 ml [id number] NIMA Administration Carvedilol 12.5 mg 10/29/19 08:00 11/01/19 08:02 Coreg PO 12.5 mg BID-WM NIMA Administration Clonidine 0.1 mg 10/28/19 13:26 10/30/19 04:45 Catapres PO 0.1 mg Q4H PRN Administration SBP > _180___ Enoxaparin Sodium 40 mg 10/29/19 09:00 11/01/19 08:02 Lovenox SC 40 mg 0900 NIMA Administration Famotidine 20 mg 10/28/19 21:00 11/01/19 08:02 Pepcid PO 20 mg BID NIMA Administration Guaifenesin 200 mg 10/28/19 20:48 10/28/19 21:13 Organ-I Nr PO 200 mg Q4H PRN Administration Congestion Guaifenesin 600 mg 10/30/19 09:00 11/01/19 08:01 Mucinex PO 600 mg Q12HR NIMA Administration Hydralazine HCl 10 mg 10/28/19 13:26 10/30/19 04:06 Apresoline SLOW IVP 10 mg Q4H PRN Administration SBP > 180 and HR < 70 Hydralazine HCl 25 mg 10/28/19 15:00 11/01/19 08:02 Apresoline PO 25 mg TID NIMA Administration Minoxidil 5 mg 10/31/19 09:00 11/01/19 08:01 Minoxidil PO 5 mg DAILY NIMA Administration Nifedipine 30 mg 10/29/19 09:00 11/01/19 08:01 Procardia Xl PO 30 mg DAILY NIMA Administration Cefdinir 300 Mg Cap 0 each 10/29/19 09:00 11/01/19 08:02 PO 1 each BID NIMA Administration Potassium Chloride 40 meq 10/28/19 17:00 11/01/19 08:01 K-Dur PO 40 meq BID-WM NIMA Administration - Exam Eye: PERRL Heart: RRR, no murmur, no gallops, no rubs, normal peripheral pulses Respiratory: CTAB, no wheezes, no rales, no ronchi, normal chest expansion Gastrointestinal: soft, non-tender, non-distended, normal bowel sounds, no palpable masses, no hepatomegaly Extremities: no cyanosis, no edema Hosp A/P (1) Hypertensive crisis Code(s): I16.9 - HYPERTENSIVE CRISIS, UNSPECIFIED Status: Acute (2) Chronic systolic (congestive) heart failure Code(s): I50.22 - CHRONIC SYSTOLIC (CONGESTIVE) HEART FAILURE Status: Chronic (3) Obesity (BMI 30.0-34.9) Code(s): E66.9 - OBESITY, UNSPECIFIED Status: Chronic - Plan * Hypertensive crisis- resolved * Discussed with Dr. Sage- he is stable for discharge home
[2019-11-01 09:34] VITALS: TEMP 98.6
--- NOTE | 2019-11-01 09:34 | PRG ---
DATE OF SERVICE: 11/01/2019 SUBJECTIVE: Mr. Sosa is a 49-year-old white male, admitted for acute kidney injury as well as a labile hypertension. Adjustment of the BP medications was done. Losartan was re-initiated, but creatinine has been slowly worsening. For that reason, it was discontinued. In addition, he is being workup for secondary hypertension. A 24-hour urine for HIAA as well as aldosterone has been done. We are still awaiting for his plasma aldosterone and plasma renin. Since the tests have been completed with regards for recheck for possible hyperaldosteronism, we can start this patient on spironolactone at 25 mg tablet once a day. He is also on minoxidil for his labile hypertension. No other complaints today. No chest pain or shortness of breath. OBJECTIVE: VITAL SIGNS: Blood pressure is 180/109 with heart rate of 85, respiratory rate 16, and temperature 97.7. GENERAL: Awake and alert, sitting comfortable, not in distress. SKIN: Adequate turgor. HEENT: Pinkish conjunctivae. Anicteric sclerae. NECK: No neck mass. No carotid bruits. No JVD. CHEST: No deformities. LUNGS: Clear breath sounds. HEART: Normal sinus rhythm. No murmur. No gallops. No rubs. ABDOMEN: Globular, soft, and nontender. No masses. EXTREMITIES: No edema. No deformities. MEDICATIONS: Medications of November 01, 2019, reviewed. LABORATORY DATA: Laboratories of November 01, 2019; sodium 140, potassium 3.9, chloride 108, carbon dioxide 25, BUN 25, creatinine 1.82, glucose 134, and calcium 8.2. White count 10.3 and hemoglobin 13.4. Twenty-four hour urine for aldosterone currently pending. Plasma aldosterone and plasma renin pending. Renal ultrasound for renal artery stenosis, negative. ASSESSMENT AND PLAN: 1. Labile hypertension. Continue current BP medications. Continue to hold off losartan. Restart spironolactone 25 mg tablet once a day. 2. Acute kidney injury. I suspect hemodynamically mediated dysfunction secondary to the use of the losartan. Continue to hold of losartan and diuretics. 3. Agree with current management. Okay for discharge. We will continue current hospital medications and we will follow him up at the renal clinic. Job ID: [id number]
--- NOTE | 2019-11-01 10:16 | DIS ---
DATE OF ADMISSION: 10/28/2019 DATE OF DISCHARGE: 11/01/2019 PRIMARY CARE PHYSICIAN: Dr. Gandhi. DISCHARGE DISPOSITION: Home. DISCHARGE DIAGNOSES: 1. Hypertensive crisis. 2. Morbid obesity. 3. Probable obstructive sleep apnea. DISCHARGE MEDICATIONS: Include; 1. Aldactone 25 mg p.o. daily. 2. Nifedipine XL 30 mg daily. 3. Minoxidil 5 mg p.o. daily. 4. Hydralazine 25 mg t.i.d. 5. Carvedilol 12.5 mg twice daily. PROCEDURES DONE DURING ADMISSION: The patient had an echocardiogram, in which the EF was estimated at 40% to 45%. There was grade 2/3 diastolic dysfunction and moderate concentric left ventricular hypertrophy and moderately dilated left atrium. The patient had an abdominal ultrasound, in which there was no evidence of any hydronephrosis and no evidence of any renovascular hypertension. CODE STATUS: Full code. ALLERGIES: PENICILLIN. HOSPITAL COURSE: Mr. Sosa is a pleasant 49-year-old gentleman, who came to the emergency room complaining of lower extremity edema. He was however found to be extremely hypertensive. He was admitted to the ICU and placed on a Cardene drip initially. His blood pressure was slowly brought down. His technician automatic as well as touch up worker were consulted. His medications were titrated to the final regimen. He had blood in urine, lab work done to rule out secondary causes of hypertension. These were pending at the time of discharge; however, Aldactone was added to his regimen. He was also found to have chronic systolic heart failure, likely as a result of poorly controlled long-standing hypertension. He was not able to be placed on an TRAE inhibitor or ARB due to acute kidney injury, and the plan was for him to have a cardiac catheterization by Dr. Sahu once his renal function stabilize. The patient was able to be discharged home on 11/01/2019 with followup with his primary care physician in 1 to 2 weeks, also with Pulmonology for probable sleep apnea to get an outpatient sleep study, also with cardiac rehab with Dr. Sahu and with Dr. Sage as well. Job ID: [id number]
[2019-11-01 10:28] VITALS: BP 157/90
--- NOTE | 2019-11-01 14:00 | PQF ---
CLINICAL DOCUMENTATION IMPROVEMENT CLARIFICATION FORM: ICD-10 Updated PLEASE DO AN ADDENDUM TO THE PROGRESS NOTE WITH ANY DOCUMENTATION UPDATES OR ADDITIONS AND CARRY THROUGH TO DC SUMMARY. THANK YOU. DATE: 11/01/2019 ATTN: Dr. Alarcon Please exercise your independent, professional judgment in responding to the clarification form. Clinical indicators are provided on the bottom of this form for your review Please check appropriate box(s): AMI TYPE: [ X ] Type 2 DC (T2MI) secondary to: [X ] hypertension [ ] renal failure [ ] heart failure [ ] other [ ] Other diagnosis [ ] Unable to determine In addition, please specify: Present on Admission (POA): [X ] Yes [ ] No [ ] Unable to determine CLINICAL INDICATORS - SIGNS / SYMPTOMS / LABS / RESULTS AND LOCATION IN EMR H&P 10/28: Assessment: presents with hypertensive emergency due to the shear elevation of his BP as well as an elevation of his troponin. 10/28 (Luis Alberto) LAB: Troponin has been 0.74 and 0.79 with a BNP of 3368 10/29 (Luis Alberto) HTN Urgency Acute on chronic systolic and diastolic CHF Labile HTN Chronic kidney disease NSTEMI, type 2 demand ischemia most likely PN 10/31: NSTEMI, type 2 demand ischemia most likely. RISKS: H&P 10/28: PMH: Significant for hypertension. Assessment: Chronic kidney disease in the setting of severe hypertension. TREATMENT: H&P 10/28: He will be admitted to the ICU, started on a Cardene drip. We will continue to trend his cardiac enzymes and consult Cardiology for further recommendations. Thank you, Mary (This form is maintained as a part of the permanent medical record) 2014 [employer]. All Rights Reserved Mary Calvert RN, BSN [email or web address] Office: [phone] [facility]
--- NOTE | 2019-11-01 14:31 | PQF ---
CLINICAL DOCUMENTATION IMPROVEMENT CLARIFICATION FORM: ICD-10 Updated PLEASE DO AN ADDENDUM TO THE PROGRESS NOTE WITH ANY DOCUMENTATION UPDATES OR ADDITIONS AND CARRY THROUGH TO DC SUMMARY. THANK YOU. DATE: 11/01/2018 ATTN: Dr. Alarcon Please exercise your independent, professional judgment in responding to the clarification form. Clinical indicators are provided on the bottom of this form for your review Please check appropriate box(s): Conflicting documentation was noted in the Medical Record, please clarify if patient is being treated/monitored for: [ X ] Chronic systolic congestive heart failure. [ ] Acute on chronic systolic and diastolic CHF. [ ] Other diagnosis [ ] Unable to determine In addition, please specify: Present on Admission (POA): [X ] Yes [ ] No [ ] Unable to determine For continuity of documentation, please document condition throughout progress notes and discharge summary. Thank You. CLINICAL INDICATORS - SIGNS / SYMPTOMS/ LABS / RESULTS AND LOCATION IN EMR H&P 10/28: Extremities: He has 2+ pitting edema bilaterally. BNP is 3368 His chest x-ray, he has cardiomegaly and increased pulmonary vascular marking 10/28 (Luis Alberto) He was at home and and has not been noticing for the last few weeks that he has to sleep with his head up. If he sleeps flat, he would wake up every hr and a half with SOB and choking Assessment: Hypertensive urgency. Lower extremity edema, concern for left ventricular dysfunction 10/29 and 10/31 (Luis Alberto) Acute on chronic systolic and diastolic CHF Systolic dysfunction EF at 40-45% 10/31 PN (Dorian) Chronic systolic heart failure - compensated RISKS: 10/28 (Luis Alberto) PMH: Labile HTN, Type 2 diabetes. Diastolic dysfunction TREATMENT: 10/28 ( Luis Alberto) Plan: Echo Order 10/28 to 11/01: Hydralazine 25 mg po TID Order 10/28: Hydralazine 10mg slow IVP q 4 hr prn 10/29 (Luis Alberto) Plan: Once he is able to lay flat will plan on risk stratification with [facility] Thank you, Mary (This form is maintained as a part of the permanent medical record) 2015 [employer] All Rights Reserved Mary Calvert RN, BSN [email or web address] Office: [phone] [facility]
[2019-11-02] MEDS ORDERED: Spironolactone 25 MG TAB PO SCH (08:00)
--- NOTE | 2019-11-03 14:20 | EKG ---
Test Reason : LEG SWELLING Blood Pressure : / mmHG Vent. Rate : 115 BPM Atrial Rate : 115 BPM P-R Int : 164 ms QRS Dur : 094 ms QT Int : 354 ms P-R-T Axes : 068 -28 083 degrees QTc Int : 489 ms Sinus tachycardia Possible Left atrial enlargement Nonspecific T wave abnormality Abnormal ECG Confirmed by RAJIV JACKSON DO ([id number]), video editor ZIGGY DEL ROSARIO ([id number]) on 11/03/2019 2:20:02 PM Referred By: Confirmed By:RAJIV JACKSON DO
== END 2019-11-01 10:25 | disposition home or self-care (01) | DRG 281 ==
LOC: ERS 09:08 → CCU 13:11 → 2NO 10-30 16:50
PROVIDERS: ADMIT Internal Medicine; ATTEND Emergency Medicine
DX: I16.0 Hypertensive urgency (principal); I21.A1 Myocardial infarction type 2; I16.1 Hypertensive emergency; N17.9 Acute kidney failure, unspecified; I50.22 Chronic systolic (congestive) heart failure; I13.0 Hypertensive heart and chronic kidney disease with heart failure and stage 1 through stage 4 chronic kidney disease, or unspecified chronic kidney disease; E78.00 Pure hypercholesterolemia, unspecified; E66.01 Morbid (severe) obesity due to excess calories; G47.33 Obstructive sleep apnea (adult) (pediatric); E11.22 Type 2 diabetes mellitus with diabetic chronic kidney disease; E78.5 Hyperlipidemia, unspecified; N18.9 Chronic kidney disease, unspecified; E87.6 Hypokalemia; Z91.14 Patient's other noncompliance with medication regimen; Z79.899 Other long term (current) drug therapy; Z88.0 Allergy status to penicillin; Z68.33 Body mass index [BMI] 33.0-33.9, adult
CPT/HCPCS: 36415; 71045; 76770; 80048; 80053; 82088; 82553; 83497; 83735; 83835; 83880; 84244; 84484; 85025; 93005; 93306; 93798; 93975; 94640; 94660; 96372; 96374; J0360; J1650; J7050; J7620

== ENCOUNTER 2019-11-07 17:30 | Inpatient (IN) | payer BC ==
[~2019-11-07 17:30] MED LIST: Iopamidol-370 76% 500 ML 1 ML ONE
[2019-11-07 18:14] LABS: #Basophils 0.1 thou/uL (0.0-0.2); #Eosinphils 0.1 thou/uL (0.0-0.7); #Lymphocytes 1.1 thou/uL (1.20-3.40); #Monocytes 0.9 thou/uL (0.11-0.59); #Neutrophils 8.1 thou/uL (1.40-6.50); %Basophils 0.6 % (0.0-1.0); %Eosinophils 1.2 % (0.0-10.0); %Lymphocytes 11.1 % (21.0-51.0); %Monocytes 8.2 % (0.0-10.0); %Neutrophils 78.9 % (42.0-75.0); Hemoglobin 13.6 g/dL (14.0-18.0); Mean Corpuscular HGB CONC 32.4 g/dL (32.0-36.0); Mean Corpuscular Volume 86.5 fL (78.0-98.0); Mean Platelet Volume 9.3 fL (7.4-10.4); Platelet Count 242 thou/uL (130-400); RBC Distribution Width 13.7 % (11.5-14.5); Red Blood Cell (RBC) Count 4.85 mill/uL (4.70-6.10); White Blood Cell (WBC) Count 10.3 thou/uL (4.8-10.8)
--- NOTE | 2019-11-07 18:28 | RAD ---
EXAM: Chest PA and lateral: HISTORY: Hypertension. COMPARISON: 10/28/2019 FINDINGS: Heart: Normal cardiac silhouette Aorta: Slight elongation aorta Pulmonary vessels: Normal Costophrenic angles: Costophrenic angles are clear. Lungs: Patchy interstitial and alveolar opacities. Pneumothorax: No pneumothorax Osseous structures: No osseous abnormalities IMPRESSION: Patchy interstitial and alveolar opacities
--- NOTE | 2019-11-07 18:29 | RAD ---
THREE VIEWS OF THE LEFT RIB SERIES: 11/07/19 INDICATION: Left anterior chest abrasion and pain status post syncope with fall at home. FINDINGS: There is a minimally displaced left anterolateral 10th rib fracture. There is also component of a non displaced posterior left 11th rib fracture. There is a minimally displaced posterior left 11th rib f racture. No left sided pneumothorax is evident. IMPRESSION: 1. Segmental fracture of the left 10th rib. 2. Minimally displaced posterior left 11th rib fracture. POS: BH
[2019-11-07 18:34] LABS: ALT (SGPT) 59 U/L (8-55); AST (SGOT) 54 U/L (5-34); Albumin 3.8 g/dL (3.5-5.0); Alkaline Phosphatase 103 U/L (40-110); Anion Gap 14 mmol/L (10-20); BUN (Urea Nitrogen) 20 mg/dL (8.4-25.7); Bilirubin, Total 0.5 mg/dL (0.2-1.2); Calc. Creatinine Clearance 0 mL/min (70-130); Calcium 8.8 mg/dL (7.8-10.44); Carbon Dioxide 27 mmol/L (22-29); Chloride 104 mmol/L (98-107); Estimated GFR-MDRD 41; Globulin 2.4 g/dL (2.4-3.5); Glucose 274 mg/dL (70-105); Protein, Total 6.2 g/dL (6.0-8.3); Sodium 141 mmol/L (136-145)
[2019-11-07 18:49] LABS: CKMB 4.6 ng/mL (0-6.6)
[2019-11-07] MEDS ORDERED: HYDROcodone/Acetaminophen 10/325 mg Tablet ONE (19:14)
--- NOTE | 2019-11-07 19:25 | CT ---
Exam: Head CT without contrast HISTORY: Syncope. COMPARISON: none FINDINGS: Hemorrhage: No intraparenchymal hemorrhage or extra-axial hematoma. Brain parenchyma: Cortical singh-white matter differentiation is preserved. No mass effect or midline shift. Basilar cisterns are patent.Patchy white matter hypodensities likely due to chronic small vessel ischemic change. Ventricular system: Ventricles and sulci are patent and symmetric. Calvarium: Intact. Sinuses and mastoid air cells: Adequate aeration. IMPRESSION: No acute intracranial process. Further evaluation with nonemergent brain MRI may be beneficial.
[2019-11-07] MEDS ORDERED: Morphine 4 MG/ML VIAL ONE (20:19)
[2019-11-07] MEDS ORDERED: Adacel (T-DAP) 0.5 ML SYRINGE ONE (20:19)
[2019-11-07 20:38] LABS: Bacteria/HPF None Seen HPF (None Seen); Bilirubin Negative (Negative); Blood, Urine Trace (Negative); Clarity Clear (Clear); Glucose, Urine (Dipstick) 500 mg/dL (Negative); Leukocyte Negative Leu/uL (Negative); Nitrite Negative (Negative); Protein, Urine (Dipstick) 100 mg/dL (Neg-Trace); RBC/HPF 0-3 HPF (0-3); Squamous Epithelial 0-3 HPF (0-3); Urobilinogen Normal mg/dL (Less than 2)
--- NOTE | 2019-11-07 20:50 | CT ---
EXAM: CT ABDOMEN AND PELVIS Limited CT of the lumbar spine HISTORY: Fall. Trauma. Pain. COMPARISON: None. Procedure: Multiple contiguous axial images were obtained and a CT of the abdomen and pelvis with IV contrast. C oronal reformats were performed. FINDINGS: Lower Chest: Calcified granuloma in the right lower lobe. Vessels: Normal caliber aorta. No periaortic fat stranding. Heart: Enlarged. No significant pericardial fluid. Abdomen: Portal vein:Patent Gallbladder: Contracted. Liver: within normal limits. Pancreas: within normal limits. Spleen: within normal limits. Adrenals: within normal limits. Kidneys: Hypodensity in the right renal cortex, measuring 2.5 x 2.2 cm compatible with a cyst. 1 cm e xophytic hypodensity from the lower pole of the left kidney with attenuation coefficient of 26 Hounsfield units. Incomplete characterization. No evidence of an enhancing mass. No evidence of obstr uctive uropathy. Peritoneum: No ascites or free air, no fluid collection. Bowel: Limited evaluation due to the lack of oral contrast administration. No evidence of bowel obstr uction. Ileocecal junction is unremarkable. Normal caliber appendix. Scattered fecal material in a nondistended, nondilated colon. Mesentery and Retroperitoneum: No enlarged mesenteric or retroperitoneal lymph nodes. Nonspecific sara cified focus in the abdominal mesentery, measuring 2.3 x 0.8 cm. Abdominal Wall: within normal limits. Pelvis: Reproductive Organs: Reproductive organs are unremarkable. Pelvis: No mass, lymphadenopathy, free air or free fluid. Bladder: within normal limits. Bones: Indeterminate fractures as well as old fractures involving the posterior right 11th and 12th r ib. Acute fractures involving the posterior left 10th through 11th rib. Pelvis is intact. Sacral ala are preserved. Limited CT of the lumbar spine: Lumbar spine vertebral body height is maintained. There is no evidenc e of a vertebral body fracture. There is a remote displaced fracture involving the right transverse process at L1 and L2. IMPRESSION: 1. Bilateral rib fractures. The left rib fractures appear to be acute. Right rib fractures are presum ed to be indeterminate/chronic. 2. No evidence of a fracture in the visualized distal thoracic and lumbar vertebra, in terms of the v ertebral bodies. Remote right L1 and L2 transverse process fractures are suspected. 3. Indeterminate lesion in the lower pole the left kidney. Nonemergent renal mass protocol CT versus abdomen MRI 4. Calcification of the abdominal mesentery. Differential considerations include a calcified mesenter ic infarct. Carcinoid lesion cannot be entirely excluded. Correlate clinically. CODE T Transcribed Date/Time: 11/07/2019 9:04 PM
[2019-11-07] MEDS ORDERED: Labetalol HCl 100 MG/20 ML VIAL ONE (22:41)
[2019-11-07 23:18] LABS: Troponin I 0.522 ng/mL (< 0.028)
[2019-11-07] MEDS ORDERED: Aspirin Chewable 81 MG TAB ONE (23:24)
[2019-11-07] MEDS ORDERED: Ondansetron PF 4 MG/2 ML Vial IVP PRN (23:56)
[2019-11-07] MEDS ORDERED: Ondansetron ODT 4 MG TAB SL PRN (23:56)
[2019-11-08] MEDS: Morphine 2 MG/ML SYRINGE SLOW IVP PRN ×4 (00:13→07:30)
[2019-11-08 00:29] VITALS: BMI 33.2
[2019-11-08 01:58] LABS: Troponin I 0.636 ng/mL (< 0.028)
[2019-11-08] MEDS ORDERED: Acetaminophen 325 MG TAB PO PRN (06:02)
[2019-11-08] MEDS ORDERED: HYDROcodone/Acetaminophen 5/325 mg Tablet PO PRN (06:02)
[2019-11-08] MEDS ORDERED: Labetalol HCl 100 MG/20 ML VIAL SLOW IVP PRN (06:05)
--- NOTE | 2019-11-08 06:59 | HP ---
PRIMARY CARE PHYSICIAN: Dr. Gandhi. COMMUTATOR TESTER: Dr. Sage. CHIEF COMPLAINT: Syncope. HISTORY OF PRESENT ILLNESS: This is a 49-year-old obese male, past medical history of resistant hypertension, was recently discharged and has been compliant with off of his home blood pressure medications, chronic kidney disease stage 3, grade 2-3 diastolic dysfunction with apical hypokinesis noted per recent 10/28/2019 TTE, who presents to [facility] after experiencing a syncopal episode with resultant left chest wall pain prompting further evaluation. The patient reports being in his usual state of health and was at home off from work. He reports he had not eat much all day except for a salad. He states he is walking around the house when all of a sudden he became dizzy and lightheaded, and had a syncopal episode landing on the coffee table and he has been in the ground for 4-5 minutes and was noted to be diaphoretic and have urinated himself. He denies any tongue biting or history of seizure episodes. in intense pain in the left chest wall. Workup in the emergency room revealed rib fractures and noncontrast head CT revealed rib fractures in the 10th and 11th left ribs. CT of abdomen and pelvis re-demonstrated rib fractures revealed indeterminate left lower kidney pole lesion as well as calcifications of the abdominal mesentery. Furthermore, noncontrast head CT suggested no acute intracranial processes, but did note patchy white matter hypodensities attributed to chronic small vessel ischemic changes. The patient was noted to be hypertensive in the emergency department of 190s/120s, required multiple IV antihypertensive medications as well as IV opioids. He is admitted for further observation. Labs revealed mild trending of troponins, not much different from the last hospitalization 10 days ago. At bedside, the patient offers no acute complaints. He notes left-sided rib pain. He denies any anginal complaints. He has been compliant with all home medications since recent discharge. He has been checking his blood pressure on a daily basis with normal blood pressures ranging around 160s/90s. He denies any orthostatic symptoms. Denies any acute GI losses. He denies any acute bleeding. He reports that he is dealing with recalcitrant hypertension for 15 years. PAST MEDICAL HISTORY: Obesity, uncontrolled hypertension, diastolic dysfunction grade 2-3 per October 28, 2019 TTE. PAST SURGICAL HISTORY: None. SOCIAL HISTORY: The patient lives at home alone. He is . Denies any tobacco use. Denies any illicit drug use. ALLERGIES: PENICILLIN. REVIEW OF SYSTEMS: Pertinent positives as per HPI. Remainder of review of systems negative. HOME MEDICATIONS: Reviewed as per admission medication reconciliation. FAMILY HISTORY: The patient does not know if he is adopted. PHYSICAL EXAMINATION: VITAL SIGNS: T-max afebrile at 97.8, pulse 78 to 91, blood pressure ranges from 150s-190s/90s-120s, oxygen saturation 97% on room air, and respirations 14-18, nonlabored. GENERAL APPEARANCE: Middle-aged obese male, awake, alert, oriented, quite lucid, not in any obvious distress, speaking in full complete sentences. HEENT: Normocephalic, atraumatic. No facial asymmetry. Pupils equally round. Extraocular muscles intact. Moist mucous membranes. NECK: Supple. CARDIOVASCULAR: S1, S2. Regular rate and rhythm. No harsh murmurs. There is reproducible chest wall tenderness overlying the left lateral chondral cartilage. LUNGS: Nonlabored respiration on bilateral posterior auscultation. Symmetrical chest expansion. No wheezing. No rales. ABDOMEN: Soft, nontender, and nondistended. EXTREMITIES: There is pitting pedal edema noted. SKIN: Warm to touch without rash or pallor. There is still some abrasions overlying the left chest wall. LABORATORY DATA: WBC 10.3, H and H 13.6/42, platelets 242. Chemistries reviewed. Troponin I 0.92 with repeat 0.522 with repeat 0.636. Of note, troponin values on 10/28/2019 approximately is 0.74-0.79. Sodium 141, potassium 4, chloride 104, bicarb 27, glucose 274, BUN and creatinine 20/1.76, GFR 41. LFTs unremarkable. AST 54, ALT 59, alkaline phosphatase 103. IMAGING: Rib x-rays suggest left 10th and 11th rib fractures. Noncontrast CT suggests no acute intracranial process with patchy white matter hypodensities likely due to chronic small-vessel ischemic changes. CT of abdomen and pelvis read demonstrates rib fractures. Indeterminate left lower pole kidney lesion, right renal cortex hypodensity compatible with cyst. ASSESSMENT: 1. Syncope of unspecified etiology. The patient will be admitted to observation status and placed on telemetry monitoring. We will monitor for any recurrence of symptoms. Continue home with oral antihypertensive medications. We will monitor for pain control. We will consult Cardiology for any other recommendations. We will obtain orthostatic vital signs. 2. Left rib fracture secondary to a syncopal event. Monitor for pain control with oral analgesics. Avoid NSAID therapy. 3. Hypertensive urgency. The patient has known history of uncontrolled hypertension, most recently discharged on 5 oral antihypertensive medications which he has been compliant with. Unfortunately, pain likely compounds his blood pressure at this time. We will monitor for appropriate pain control and resume home antihypertensive medications. We will consult Cardiology, Nephrology to optimize the patient's medical therapy. 4. Chronic kidney disease stage 3, at baseline. 5. Elevated troponin. Likely, the patient experiences supply demand mismatch from hypertensive urgency and possibly from chronic kidney disease. 6. Diastolic dysfunction per 10/28/2019 transthoracic echocardiogram. The patient is not exhibiting any signs of volume overload. 7. Deep venous thrombosis prophylaxis. Lovenox. 8. Disposition: Telemetry observation status. 9. The patient is seen and examined on 11/08/2019. Job ID: [id number]
[2019-11-08] MEDS: Minoxidil 2.5 MG TAB PO SCH (07:26)
[2019-11-08] MEDS: Carvedilol 6.25 MG TAB PO SCH ×2 (07:27→17:08)
[2019-11-08] MEDS: Spironolactone 25 MG TAB PO SCH (07:27)
[2019-11-08] MEDS ORDERED: Enoxaparin Sodium 30 MG/0.3 ML SYRINGE SC SCH (09:00)
[2019-11-08] MEDS ORDERED: NIFEdipine XL 30 MG TAB PO SCH ×2 (09:00)
[2019-11-08] MEDS ORDERED: hydrALAZINE 25 MG TAB PO SCH ×2 (09:00)
--- NOTE | 2019-11-08 09:37 | PRG ---
DATE OF SERVICE: 11/08/2019 SUBJECTIVE: Mr. Sosa is a 49-year-old white male, who was admitted for syncopal episode. He fell down and hit the table at the corner and he developed some left rib fracture. He is currently being worked up for the syncope. We are consulted for his acute kidney injury/chronic renal failure, as well as labile hypertension. Previous workup for pheochromocytoma and renal artery stenosis have been negative. A 24-hour urine for aldosterone has been ordered. Of interest, the CAT scan of the abdomen did not show any adrenal adenoma with this patient. He may have simply an essential hypertension. The patient is feeling better this morning. OBJECTIVE: VITAL SIGNS: Blood pressure is 191/130 - this is before BP medications, heart rate 78, respiratory rate 20, temperature 97.9, and pulse ox 95%. GENERAL: Noted to be awake, alert, comfortable, and obese, not in distress. SKIN: Adequate turgor. HEENT: He has pinkish conjunctivae. Anicteric sclerae. NECK: No neck mass. No carotid bruits. No JVD. CHEST: No deformities. LUNGS: Clear breath sounds. HEART: Normal sinus rhythm. No murmur. No gallops. No rubs. ABDOMEN: Globular, soft, and nontender. No masses. EXTREMITIES: No edema. No deformities. MEDICATIONS: Medications of November 08, 2019 reviewed. LABORATORY DATA: Laboratories of November 07, 2019, urinalysis shows specific gravity 1.012, protein is 100, rbcs 0 to 3, wbc 4 to 6, and urine bacteria none. A 24-hour urine for 5-HIAA - 3.4 negative. A 24-hour urine for aldosterone pending. CT scan of the abdomen and pelvis, no adrenal adenoma noted. White count 10.3 and hemoglobin 13.6. November 07, 2019; sodium 141, potassium 4, chloride 104, carbon dioxide 27, BUN 20, creatinine 1.76, glucose 274, AST 54, ALT 59, and albumin is 3.8. BNP 1649 and troponin I 0.522. November 01, 2019, creatinine was 1.82. October 30, 2019, creatinine was 1.44. October 29, 2019, creatinine was 1.15. ASSESSMENT AND PLAN: 1. Acute kidney injury - consider hemodynamically-mediated renal dysfunction. Consider empiric volume repletion with this patient with normal saline at 100 mL/h. 2. Labile hypertension. Resume BP medications. Agree with minoxidil and spironolactone being added. Adjust BP medications as needed. So far, workup for secondary hypertension have been negative. 3. Syncopal episode. Consider ruling out for myocardial infarction. Consider Cardiology consult. 4. Recheck basic metabolic and CBC in a.m. Job ID: [id number]
[2019-11-08] MEDS: Sodium Chloride 0.9% 1,000 ML IV SCH ×2 (10:10→20:19)
[2019-11-08] MEDS ORDERED: Aspirin 325 mg Enteric Coated Tablet PO SCH ×2 (10:15→10:30)
[2019-11-08] MEDS ORDERED: Dextrose 50% Abboject 50 ML SYRINGE SLOW IVP PRN (10:23)
[2019-11-08] MEDS ORDERED: Dextrose 5% in Water 1,000 ML IV PRN (10:23)
[2019-11-08] MEDS ORDERED: Enoxaparin Sodium 100 MG/ML SYRINGE SC SCH (10:30)
--- NOTE | 2019-11-08 10:32 | PRG ---
DATE OF SERVICE: 11/08/2019 SUBJECTIVE: The patient is seen and examined at bedside. The patient's is present in the room during my visit. The patient states that he is feeling fine. He does not have much complaints to offer except for the pain from his broken ribs, and he is asking for more pain medications. OBJECTIVE: VITAL SIGNS: Blood pressure is 168/98, pulse is 78, respiratory rate is 20, temperature is 97.9, and O2 saturation is 95% on room air. HEENT: His head is atraumatic and normocephalic. Eyes are PERRLA. Sclerae nonicteric. Oral mucosa is moist. NECK: Supple. LUNGS: Inspiratory crackles especially at the right base present. HEART: S1 and S2 normal. ABDOMEN: Soft, nontender, mildly distended, and obese. EXTREMITIES: No clubbing, cyanosis or edema. NEUROLOGICAL: He is alert and oriented x4. There is no any motor or sensory deficits. LABORATORY DATA: Glucose of 162. Troponin 0.292, 0.522, and 0.636. IMPRESSION: 1. Syncope. 2. Rib fractures secondary to syncope. 3. Hypertensive urgency. 4. Type 2 myocardial infarction. 5. Chronic kidney disease, stage 3. 6. Cardiomyopathy with left ventricular ejection fraction estimated at 45% on the last echo done 2 days ago. DISCUSSION: The patient was seen by poultice machine operator Dr. Sahu, who recommends to stop hydralazine and start p.r.n. clonidine. Also, we will use a higher dose of morphine to control his pain from the fractured ribs. We will use 4 mg of morphine every 4 hours and p.r.n. [place] as needed in the meantime. Also, he will continue on IV fluids, which was ordered by Dr. Sage, and we will check his kidney function tomorrow to see whether his creatinine is down to the reasonable range when poultice machine operator can do cardiac catheterization, which is planned for tomorrow. We will make sure that he is on aspirin. Job ID: [id number]
[2019-11-08] MEDS: Morphine 4 MG/ML VIAL IV PRN ×3 (11:11→20:26)
[2019-11-08 12:26] LABS: Platelet Count 233 thou/uL (130-400)
--- NOTE | 2019-11-08 15:58 | CON ---
DATE OF CONSULTATION: 11/08/2019 REASON FOR CONSULTATION: Syncope. HISTORY OF PRESENT ILLNESS: Mr. Sosa is a pleasant 49-year-old white gentleman, who comes to the hospital for a syncopal spell. He was in his normal state of health. He suddenly felt dizzy, lightheaded, and he felt himself going down, hit his ribs on a coffee table and then hit the floor. He then does not clear whether he lost consciousness or not, but he remembers standing up, calling his mother, who came to aid and brought him to the hospital. On arrival to the hospital, his sugars were in the 200s range and his blood pressure was elevated. Heart rate was normal as well. He was recently admitted for hypertensive emergency. He had a bump in his creatinine, also bump in his troponins, plan was to cath him if his creatinine got better but it has never started to come down. Currently, he is doing much better. He denies any chest pain, tightness, pressure. No shortness of breath. His blood pressure continues to be labile. PAST MEDICAL HISTORY: 1. Obesity. 2. Otcdotrch-gn-ducgkug malignant hypertension. 3. Diastolic heart failure. PAST SURGICAL HISTORY: None. SOCIAL HISTORY: No alcohol, tobacco, or drugs. FAMILY HISTORY: Noncontributory. REVIEW OF SYSTEMS: A 12-point review of systems was done and all negative unless stated in the history of present illness. OUTPATIENT MEDICATIONS: 1. Nifedipine 30 mg a day. 2. Spironolactone 25 mg a day. 3. Carvedilol 12.5 mg b.i.d. 4. Hydralazine 25 mg t.i.d. 5. Minoxidil 5 mg a day. ALLERGIES: PENICILLIN. PHYSICAL EXAMINATION: VITAL SIGNS: Temperature 97.9, pulse 75, respiratory rate 19, saturating 94% on room air, and blood pressure 166/98. GENERAL: Awake, alert, and oriented x3. In no distress. HEENT: Normocephalic, atraumatic. NECK: Supple. LUNGS: Clear. CARDIOVASCULAR: S1 and S2. No S3 or S4. No murmurs. ABDOMEN: Soft. Positive bowel sounds. EXTREMITIES: No edema. SKIN: Warm and dry. LABORATORY DATA: Laboratory work was reviewed. His sodium was 141, potassium was 4.0, BUN of 20, creatinine 1.76 initially, repeat is down to 1.56. AST and ALT are mildly elevated. Troponin initially was 0.29 and is up to 0.52 and later is 1.63. BNP was 1649, which is better than before. UA was unremarkable. EKG was reviewed. Telemetry was reviewed. CT of the abdomen and pelvis was reviewed, which showed bilateral rib fractures, lower pole left kidney indeterminate lesion. Abdominal mesenteric arteries are calcified. Could not exclude carcinoid lesion. CT of the brain was unremarkable. ASSESSMENT AND PLAN: 1. Syncope. 2. Tuz-TV-fctlgigrv myocardial infarction. 3. Malignant hypertension. 4. Diastolic heart failure. 5. Acute kidney injury on chronic kidney disease. PLAN: 1. Agree with IV fluids. 2. If his creatinine continues to decrease, we will further risk stratify with a heart catheterization. Currently, after discussion with Dr. Sage, his creatinine is currently at 1.5, which would make him amenable for heart catheterization. As long as his creatinine does not reduce tomorrow morning, we should be able to take him to the lab to evaluate for ischemia. We spoke with him at length with risks and benefits of the procedure. Risks included, but not limited to stroke, [place], , bleeding, need for blood transfusion, limb loss, organ loss, kidney injury from contrast use. He understands, verbalized understanding of this, and agrees to proceed. Drug-eluting stents if needed, right radial access. 3. Further recommendations per results of coronary angiogram. 4. Continue blood pressure control with current regimen. He is convinced that hydralazine actually makes his blood pressure higher, so we will stop his medication and we will increase his nifedipine. Thank you for letting us to participate in the care of your patient. We will follow. Job ID: [id number]
[2019-11-08] MEDS: Acetylcysteine 10% 100 MG/ML 30 ml Vial PO SCH (17:08)
[2019-11-08] MEDS: HumaLOG 300 UNITS/3 ML VIAL SC PRN (17:13)
[2019-11-08] MEDS: Enoxaparin Sodium 100 MG/ML SYRINGE SC SCH (21:08)
[2019-11-09] MEDS: HYDROcodone/Acetaminophen 10/325 mg Tablet PO PRN (00:22)
[2019-11-09 04:26] LABS: #Basophils 0.1 thou/uL (0.0-0.2); #Eosinphils 0.2 thou/uL (0.0-0.7); #Lymphocytes 1.5 thou/uL (1.20-3.40); #Monocytes 1.1 thou/uL (0.11-0.59); #Neutrophils 7.1 thou/uL (1.40-6.50); %Basophils 0.7 % (0.0-1.0); %Eosinophils 2.5 % (0.0-10.0); %Lymphocytes 14.9 % (21.0-51.0); %Monocytes 10.9 % (0.0-10.0); %Neutrophils 71.1 % (42.0-75.0); Hemoglobin 12.3 g/dL (14.0-18.0); Mean Corpuscular HGB CONC 33.2 g/dL (32.0-36.0); Mean Corpuscular Hemoglobin 28.4 pg (27.0-31.0); Mean Corpuscular Volume 85.7 fL (78.0-98.0); Mean Platelet Volume 9.3 fL (7.4-10.4); Platelet Count 231 thou/uL (130-400); RBC Distribution Width 13.8 % (11.5-14.5); Red Blood Cell (RBC) Count 4.34 mill/uL (4.70-6.10)
[2019-11-09] MEDS: Morphine 4 MG/ML VIAL IV PRN ×3 (04:44→14:48)
[2019-11-09 04:49] LABS: Anion Gap 13 mmol/L (10-20); BUN (Urea Nitrogen) 16 mg/dL (8.4-25.7); Calc. Creatinine Clearance 90 mL/min (70-130); Calcium 8.6 mg/dL (7.8-10.44); Carbon Dioxide 26 mmol/L (22-29); Chloride 102 mmol/L (98-107); Estimated GFR-MDRD 58; Glucose 138 mg/dL (70-105); Potassium 3.9 mmol/L (3.5-5.1); Sodium 137 mmol/L (136-145)
[2019-11-09] MEDS ORDERED: Nitroglycerin 100MG/250ML BOT 0 ML ONE ×2 (06:58→11:11)
[2019-11-09] MEDS ORDERED: Heparin (Artline) 0 ML ONE (06:58)
[2019-11-09] MEDS ORDERED: Heparin 10,000 UNITS/1 ML VIAL ONE ×3 (06:58→12:50)
[2019-11-09] MEDS ORDERED: Verapamil 5 MG/2 ML VIAL ONE ×2 (06:58→11:10)
[2019-11-09] MEDS ORDERED: Lidocaine 1% (PF) 30 ML VIAL ONE ×2 (06:58→11:11)
[2019-11-09] MEDS: Minoxidil 2.5 MG TAB PO SCH (08:09)
[2019-11-09] MEDS: Enoxaparin Sodium 100 MG/ML SYRINGE SC SCH (08:09)
[2019-11-09] MEDS: Carvedilol 6.25 MG TAB PO SCH ×2 (08:09→17:24)
[2019-11-09] MEDS: Spironolactone 25 MG TAB PO SCH (08:10)
[2019-11-09] MEDS ORDERED: NIFEdipine XL 60 MG TAB PO SCH (09:00)
[2019-11-09] MEDS ORDERED: cloNIDine 0.2mg/24 Hour PATCH TD SCH (09:00)
[2019-11-09] MEDS ORDERED: Aspirin 325 mg Enteric Coated Tablet PO SCH (09:00)
--- NOTE | 2019-11-09 09:27 | PRG ---
DATE OF SERVICE: 11/09/2019 SUBJECTIVE: Mr. Sosa is a 49-year-old white male, who was admitted for syncopal episode. We are seeing this patient for his labile hypertension as well as for his acute kidney injury. He also developed left-sided rib fracture. There is a plan for him to undergo cardiac cath; for that reason, he is on IV hydration as well as on isotonic bicarbonate and Mucomyst. No other complaints today except for the left-sided chest pain. He is afraid he might not be able to lie flat during the said cardiac cath. I did tell him they may need to give him some sedation during the said procedure. No complaints of chest pain or shortness of breath. OBJECTIVE: VITAL SIGNS: Blood pressure 195/117, heart rate 97, respiratory rate 16, temperature 98.6, and pulse ox 97%. GENERAL: Noted to be awake, alert, comfortable, not in overt distress. SKIN: Adequate turgor. HEENT: He has pinkish conjunctivae. Anicteric sclerae. No neck mass. No carotid bruits. No JVD. CHEST: No deformities. LUNGS: Clear breath sounds. HEART: Normal sinus rhythm. No murmurs. No gallops. No rubs. ABDOMEN: Globular, soft, and nontender. No masses. EXTREMITIES: No edema. No deformities. MEDICATIONS: Medications of November 09, 2019, were reviewed. LABORATORY DATA: Laboratories of November 07, 2019: Urinalysis shows protein, wbc's 4 to 6, rbc's 0 to 3. November 09, 2019, sodium 137, potassium 3.9, chloride 102, carbon dioxide 26, BUN 16, creatinine 1.31, and calcium 8.6. ASSESSMENT AND PLAN: 1. Labile hypertension - I will start this patient on transdermal clonidine TTS-2 every week. He will continue with his other current antihypertensive regimen. We can increase minoxidil to 10 mg tablet at bedtime. 2. Acute kidney injury - superimposed hemodynamically-mediated renal dysfunction. Continue supportive care. Continue IV fluid. No indication for any dialytic intervention. 3. Syncopal episode - the patient for cardiac cath today. 4. Proteinuria - this could be related from an underlying hypertensive nephropathy with this patient. 5. Overall, agree with current management. Job ID: [id number]
[2019-11-09] MEDS ORDERED: Minoxidil 2.5 MG TAB PO SCH (09:30)
[2019-11-09] MEDS: cloNIDine 0.1 MG TAB PO PRN ×2 (09:38→14:47)
[2019-11-09] MEDS ORDERED: Iopamidol 370 76% 100 ML VIAL ONE (10:17)
[2019-11-09] MEDS ORDERED: Heparin (Artline) 1,000 ML ONE (11:11)
[2019-11-09] MEDS: Acetylcysteine 10% 100 MG/ML 30 ml Vial PO SCH ×2 (11:16→17:27)
[2019-11-09] MEDS ORDERED: Midazolam HCl 2 mg/2 ml Vial ONE (11:56)
[2019-11-09] MEDS ORDERED: Fentanyl 100 MCG/2 ML VIAL ONE (11:56)
--- NOTE | 2019-11-09 12:15 | PRG ---
DATE OF SERVICE: 11/09/2019 SUBJECTIVE: The patient is seen and examined at the bedside. He does not have much complaints to offer. He feels fine. He is getting ready for cardiac catheterization by Dr. Sahu this morning. His blood pressure is still significantly elevated this morning. He requires additional oral clonidine. OBJECTIVE: VITAL SIGNS: Blood pressure is 146/90 after the treatment with additional clonidine, before that it was 195/117, temperature is 98.6, pulse is 97, respirations 16, O2 saturation is 97% on room air. HEENT: His head is atraumatic and normocephalic. Eyes are PERRLA. Sclerae are nonicteric. Oral mucosa is moist. NECK: Supple. LUNGS: Clear. HEART: S1 and S2, normal. No S3. No S4. ABDOMEN: Soft, nontender, mildly obese. EXTREMITIES: No clubbing, cyanosis, or edema. NEUROLOGIC: He follows my commands. He moves his all 4 extremities. There are no motor or sensory deficits. LABORATORY DATA: White count of 10.0, hemoglobin 12.3, hematocrit 37.2, platelet count is 231. Normal electrolytes. Creatinine 1.31, BUN of 16, glucose is ranging from 157 to 259. IMPRESSION: 1. Non-ST segment elevation myocardial infarction, which is also called type 2 myocardial infarction, getting ready for cardiac catheterization this morning and we are going to hold his heparin. 2. Syncope. 3. Rib fracture secondary to syncope. 4. Hypertensive syndrome with exacerbation. 5. Chronic kidney disease stage 3 with proteinuria. 6. Cardiomyopathy with left ventricular ejection fraction estimated at 45% on the last echo during this hospitalization. PLAN: Obtain hemoglobin A1c. Get cardiac catheterization done today by Dr. Sahu. He started on a clonidine transdermal patch by nursery nurse and we are using on the top of this additional p.o. p.r.n. clonidine. He is also going to continue on his carvedilol 12.5 mg twice a day, minoxidil 10 mg, nifedipine 60 mg daily, and spironolactone 25 mg daily. I am holding an idea to start him on metformin, but this will be done later after his discharge from the hospital. For now, we will just use Accu-Cheks and sliding scale with mild regimen. Job ID: [id number]
[2019-11-09] MEDS ORDERED: TICAGRELOR 90 MG TABLET ONE (12:30)
[2019-11-09] MEDS ORDERED: Nitroglycerin 4.9 GM Bottle ONE (12:51)
[2019-11-09] MEDS ORDERED: Nitroglycerin 0.4 MG TAB (25 Tab Bottle) SL PRN (12:54)
[2019-11-09] MEDS ORDERED: cloNIDine 0.1 MG TAB ONE (13:06)
[2019-11-09] MEDS ORDERED: NIFEdipine XL 30 MG TAB PO SCH (14:30)
[2019-11-09] MEDS: HumaLOG 300 UNITS/3 ML VIAL SC PRN (17:25)
[2019-11-09] MEDS: TICAGRELOR 90 MG TABLET PO SCH (19:43)
[2019-11-09] MEDS ORDERED: Atorvastatin Calcium 40 MG TAB PO SCH (21:00)
[2019-11-09] MEDS ORDERED: HumaLOG 300 UNITS/3 ML VIAL SC PRN (21:12)
[2019-11-10] MEDS: HYDROcodone/Acetaminophen 10/325 mg Tablet PO PRN (00:53)
[2019-11-10 04:25] LABS: #Eosinphils 0.1 thou/uL (0.0-0.7); #Lymphocytes 0.7 thou/uL (1.20-3.40); #Neutrophils 7.9 thou/uL (1.40-6.50); %Basophils 0.2 % (0.0-1.0); %Eosinophils 0.8 % (0.0-10.0); %Lymphocytes 7.5 % (21.0-51.0); %Monocytes 10.2 % (0.0-10.0); %Neutrophils 81.3 % (42.0-75.0); Hemoglobin 12.1 g/dL (14.0-18.0); Mean Corpuscular Hemoglobin 28.2 pg (27.0-31.0); Mean Corpuscular Volume 85.3 fL (78.0-98.0); Mean Platelet Volume 9.1 fL (7.4-10.4); Platelet Count 224 thou/uL (130-400); RBC Distribution Width 13.7 % (11.5-14.5); White Blood Cell (WBC) Count 9.8 thou/uL (4.8-10.8)
[2019-11-10 04:32] LABS: Hemoglobin A1c 6.9 % (4.0-6.0)
[2019-11-10 04:48] LABS: ALT (SGPT) 26 U/L (8-55); AST (SGOT) 14 U/L (5-34); Albumin 3.7 g/dL (3.5-5.0); Alkaline Phosphatase 63 U/L (40-110); Anion Gap 13 mmol/L (10-20); BUN (Urea Nitrogen) 16 mg/dL (8.4-25.7); Calc. Creatinine Clearance 88 mL/min (70-130); Calcium 8.8 mg/dL (7.8-10.44); Carbon Dioxide 30 mmol/L (22-29); Chloride 102 mmol/L (98-107); Estimated GFR-MDRD 57; Globulin 2.8 g/dL (2.4-3.5); Glucose 159 mg/dL (70-105); Potassium 3.6 mmol/L (3.5-5.1); Protein, Total 6.5 g/dL (6.0-8.3); Sodium 141 mmol/L (136-145)
[2019-11-10] MEDS: Acetylcysteine 10% 100 MG/ML 30 ml Vial PO SCH (05:34)
[2019-11-10] MEDS: Morphine 4 MG/ML VIAL IV PRN ×4 (07:41→22:08)
[2019-11-10] MEDS: Carvedilol 6.25 MG TAB PO SCH ×2 (08:38→17:49)
[2019-11-10] MEDS: Aspirin Chewable 81 MG TAB PO SCH (08:38)
[2019-11-10] MEDS: Minoxidil 2.5 MG TAB PO SCH (08:39)
[2019-11-10] MEDS: TICAGRELOR 90 MG TABLET PO SCH ×2 (08:40→21:03)
[2019-11-10] MEDS: Spironolactone 25 MG TAB PO SCH (08:40)
[2019-11-10] MEDS ORDERED: Losartan 25 MG TAB PO SCH (09:00)
[2019-11-10] MEDS ORDERED: NIFEdipine XL 90 MG TAB PO SCH (09:00)
--- NOTE | 2019-11-10 11:08 | PRG ---
DATE OF SERVICE: 11/10/2019 SERVICE: Renal Medicine. SUBJECTIVE: Mr. Sosa is a 49-year-old white male, initially admitted for syncopal episode and being followed by the Renal Service for his acute kidney injury on top of his chronic renal failure. He was premedicated prior to the said cardiac cath. Creatinine is stable and seems to have tolerated the said procedure. In addition, he is being followed up for his labile hypertension. So far, workup for secondary hypertension has been negative. We are just waiting for one more test, a 24-hour urine for aldosterone. Please note, his imaging did not show any evidence of adrenal adenoma. In addition, the cardiac cath showed coronary artery disease and he was said to have received a stent placement. This morning, he voices no new complaints. No chest pain. OBJECTIVE: VITAL SIGNS: Blood pressure 17/96 - before BP medications, heart rate 81, respiratory rate 20, temperature 97.5, and pulse ox 97%. GENERAL: Awake, alert, sitting comfortable, not in distress. SKIN: Adequate turgor. HEENT: He has pinkish conjunctivae. Anicteric sclerae. NECK: No neck mass. No carotid bruits. No JVD. CHEST: No deformities. LUNGS: Clear breath sounds. No wheezing. No crackles. HEART: Normal sinus rhythm. No murmur. No gallops. No rubs. ABDOMEN: Globular, soft, and nontender. No masses. EXTREMITIES: No edema. No deformities. MEDICATIONS: Medications of November 10, 2019, were reviewed. LABORATORY DATA: Laboratories of November 10, 2019; sodium 141, potassium 3.6, chloride 102, carbon dioxide 30, BUN 16, creatinine 1.33, glucose 159, AST 14, ALT 26, and albumin 3.7. Hemoglobin A1c 6.9. White count 9.8, hemoglobin 12.1. ASSESSMENT AND PLAN: 1. Coronary artery disease - status post cardiac cath with coronary stent placement. Cardiology is following. Currently, on Brilinta. 2. Acute kidney injury, improved - superimposed hemodynamically-mediated renal dysfunction. Most recent creatinine is 1.3. 3. Chronic renal failure - with a longstanding history of hypertension, proteinuria. This could be compatible with hypertensive nephropathy. We will at least check hepatitis B and C with this patient due to the proteinuria. 4. Labile hypertension. Adjustment of BP medications have been done. Continue current BP medications. Agree with current management. Job ID: [id number]
--- NOTE | 2019-11-10 11:26 | PDOC.CPN ---
- Subjective Date: 11/10/19 Time: 11:10 Interval history: Patient with c/o SOB, edema, orthopnea. Denies any CP - Review of Systems General: denies: fever/chills, weight/appetite/sleep changes, night sweats, fatigue Respiratory: reports: shortness of breath Cardiovascular: denies: chest pain, palpitation, edema, paroxysmal nocturnal dyspnea, orthopnea Gastrointestinal: denies: nausea, vomiting, diarrhea, constipation, abd pain, GI bleeding Musculoskeletal: denies: pain, tenderness, stiffness, swelling, arthritis/ arthralgias Neurological: denies: numbness, syncope, seizure, weakness - Objective Allergies/Adverse Reactions: Allergies Allergy/AdvReac Type Severity Reaction Status Date / Time Penicillins Allergy Verified 10/28/19 11:14 Visit Medications: Current Medications Acetaminophen (Tylenol) 650 mg PO Q4H PRN PRN Reason: Headache/Fever/Mild Pain (1-3) Hydrocodone Bitart/Acetaminophen ([place] 10/325) 1 tab PO Q6H PRN PRN Reason: Severe Pain (7-10) Last Admin: 11/10/19 00:53 Dose: 1 tab Hydrocodone Bitart/Acetaminophen ([place] 5/325) 1 tab PO Q6H PRN PRN Reason: Moderate Pain (4-6) Last Admin: 11/09/19 19:41 Dose: 1 tab Aspirin (Aspirin Chewable) 81 mg PO DAILY [facility] Last Admin: 11/10/19 08:38 Dose: 81 mg Atorvastatin Calcium (Lipitor) 80 mg PO [facility] Last Admin: 11/09/19 19:44 Dose: Not Given Carvedilol (Coreg) 12.5 mg PO BID-[facility] Last Admin: 11/10/19 08:38 Dose: 12.5 mg Clonidine (Catapres) 0.1 mg PO Q4H PRN PRN Reason: Hypertension Last Admin: 11/09/19 14:47 Dose: 0.1 mg Clonidine (Pnzfswao-Owi-3) 0.2 mg TD Q7DAYS [facility] Dextrose/Water (Dextrose 50%) 25 gm SLOW IVP PRN PRN PRN Reason: Hypoglycemia Glucagon (Glucagon) 1 mg IM PRN PRN PRN Reason: Hypoglycemia Dextrose/Water (D5w) 1,000 mls @ 0 mls/hr IV .Q0M PRN PRN Reason: Hypoglycemia Insulin Human Lispro (Humalog) 0 units SC .MODERATE SLIDING SC PRN; Protocol PRN Reason: MODERATE SLIDING SCALE Insulin Human Lispro (Humalog) 0 units SC .BEDTIME SLIDING SC PRN; Protocol PRN Reason: BEDTIME SLIDING SCALE Last Admin: 11/09/19 21:20 Dose: 3 unit Labetalol HCl (Normodyne) 20 mg SLOW IVP Q6H PRN PRN Reason: Hypertension Minoxidil (Minoxidil) 10 mg PO DAILY [facility] Last Admin: 11/10/19 08:39 Dose: 10 mg Morphine Sulfate (Morphine) 4 mg IV Q4H PRN PRN Reason: Pain Last Admin: 11/10/19 07:41 Dose: 4 mg Nifedipine (Procardia Xl) 90 mg PO DAILY [facility] Last Admin: 11/10/19 08:39 Dose: 90 mg Nitroglycerin (Nitrostat) 0.4 mg SL Q5MIN PRN PRN Reason: Chest Pain Sacubitril/Valsartan (Entresto 24 Mg-26 Mg Tablet) 0 tab PO BID [facility] Stop: 12/10/19 09:01 Sodium Chloride (Flush - Normal Saline) 10 ml IVF Q12HR [facility] Last Admin: 11/10/19 08:40 Dose: Not Given Sodium Chloride (Flush - Normal Saline) 10 ml IVF PRN PRN PRN Reason: Saline Flush Spironolactone (Aldactone) 25 mg PO 0900 [facility] Last Admin: 11/10/19 08:40 Dose: 25 mg Ticagrelor (Brilinta) 90 mg PO BID [facility] Last Admin: 11/10/19 08:40 Dose: 90 mg Vital Signs & Weight: Vital Signs Temp Pulse Resp BP BP Pulse Ox 11/10/19 10:58 98.0 F 76 20 119/66 97 11/10/19 07:40 97.5 F L 81 20 178/96 H 97 11/10/19 03:50 77 155/83 H 11/10/19 03:30 97.7 F 80 16 165/87 H 98 11/09/19 23:49 98.5 F 82 17 151/72 H 95 Weight 209 lb 1.6 oz - Physical Exam General: alert & oriented x3, appears well HEENT: mucus membranes moist Neck: supple neck Cardiac: regular rate and rhythm Lungs: other (decreased BS at bases bilaterally) Neuro: grossly intact Abdomen: unremarkable, soft Extremities: other: (2+ JEFF) Skin: clear Musculoskeletal: no pain - Labs Result Diagrams: 11/10/19 11:59 11/10/19 03:58 Troponin/CKMB CK-MB (CK-2) 4.6 ng/mL (0-6.6) 11/07/19 17:57 Troponin I 0.636 ng/mL (< 0.028) H* 11/08/19 01:19 - Assessment/Plan Assessment/Plan: 1. Acute on chronic systolic CHF (EF 35% on cath) 2. NSTEMI with recent PCI - LPL 3. HTN 4. LATANYA/CKD Discussed care at length with patient. New reduction in EF since last admission. Now 35%. Discussed LifeVest. Patient agreeable to wear. Feels volume overloaded. IVFs stopped. Lasix 20mg IV x 1 given. May repeat, but since stable will cautiously use given LATANYA. Renal function improved, but could be due to volume overload. Will change Losartan to low dose entreso and monitor. Afternote: After visit while putting in orders patient had asymptomatic episode of torsades. Mag 2gm stat ordered IV. RG notified. Consider adding Amio. Agree with above. Pt examined. Given new findings of torsades and admission symptoms of syncope, would have to say syncope may have been precipitated by torsades. EF 35-40% with moderate LVH present. Reviewed meds. No obvious medication that may cause torsades. Add Magnesium and KCL EP evaluation
[2019-11-10] MEDS ORDERED: Furosemide 20 MG/2 ML VIAL SLOW IVP SCH ×2 (11:45→14:15)
[2019-11-10] MEDS ORDERED: Magnesium 2 GM/50 ML 2 GM in Premix Bag 1 BAG IVPB SCH (11:45)
[2019-11-10] MEDS: HumaLOG 300 UNITS/3 ML VIAL SC PRN ×2 (11:48→17:56)
[2019-11-10 12:09] LABS: Hemoglobin 11.9 g/dL (14.0-18.0); Platelet Count 210 thou/uL (130-400)
[2019-11-10 12:48] LABS: HBSAg Index 0.23 S/CO (0-0.99); Hep B Surf Ag Non-Reactive S/CO (NonReactive); Hep C IgG Ab Non-Reactive (NonReactive); Hep C Index 0.12 S/CO (0-0.79)
[2019-11-10] MEDS ORDERED: Potassium Chloride 20 MEQ TAB PO SCH (13:45)
--- NOTE | 2019-11-10 15:14 | PRG ---
DATE OF SERVICE: 11/10/2019 SUBJECTIVE: The patient is seen and examined at bedside. He became short of breath this morning, and he had a run of torsade de pointes. He was seen by Cardiology PA. Lasix was ordered and he started urinating. He noticed significant amount of swelling in his lower extremities since yesterday. OBJECTIVE: VITAL SIGNS: Blood pressure is 119/66, temperature is 98.0, pulse is 76, respirations are 20, and O2 saturation is 97% on room air. HEENT: His head is atraumatic and normocephalic. Eyes; PERRLA, sclerae are nonicteric. Oral mucosa is moist. NECK: Supple. LUNGS: Breath sounds diminished at both bases with few crackles at both bases. HEART: S1 and S2 normal, somewhat distant. No S3. No S4. ABDOMEN: Soft, obese, and nontender. EXTREMITIES: 2+ peripheral edema, similar bilaterally on both lower extremities. NEUROLOGICAL: He is alert and oriented x4. There is no any motor deficits. LABORATORY DATA: Hemoglobin 11.9, hematocrit 35.6, and platelet count 210. Magnesium 1.9. Glycemia is ranging from 171 to 252. Hemoglobin A1c 6.9. Hepatitis B surface antigen is nonreactive and hepatitis C antibody is nonreactive. Echocardiogram showed LVEF estimated at 35% to 40%, hypokinetic motion of the inferior wall noted in the left ventricle, restrictive filling pattern suggestive of restrictive diastolic . Left atrium was moderately dilated, and there were mild mitral aortic and tricuspid regurgitations. IMPRESSION: 1. Lgs-FV-sjecrgd elevation myocardial infarction, which is also called type 2 myocardial infarction, status post cardiac catheterization and stenting. 2. Syncope. 3. Rib fracture secondary to syncope. 4. Hypertensive syndrome with exacerbation. 5. Torsade de pointes, lasting approximately 6 to 7 seconds, spontaneously resolved. 6. Volume overload. 7. Renal insufficiency. 8. Cardiomyopathy with left ventricular ejection fraction estimated at 45%. PLAN: Diuresis. He received already 20 mg of IV push Lasix. We will get additional 20 on board. He started urinating already after the first dose of Lasix. We are going to monitor his kidney function and his cardiac function and urine output. He received a lot of fluids prior to this cardiac catheterization, and this was in order to save and improve his kidney function. Cardiology will make additional changes to his regimen. His calcium channel joseph was stopped since his blood pressure dropped to 110s systolic. Job ID: [id number]
[2019-11-10] MEDS: Simvastatin 40 MG TAB PO SCH (21:03)
[2019-11-11 05:11] LABS: Anion Gap 12 mmol/L (10-20); BUN (Urea Nitrogen) 16 mg/dL (8.4-25.7); Calc. Creatinine Clearance 87 mL/min (70-130); Calcium 8.8 mg/dL (7.8-10.44); Carbon Dioxide 29 mmol/L (22-29); Chloride 101 mmol/L (98-107); Estimated GFR-MDRD 56; Glucose 156 mg/dL (70-105); Potassium 3.6 mmol/L (3.5-5.1); Sodium 138 mmol/L (136-145)
[2019-11-11] MEDS: HYDROcodone/Acetaminophen 10/325 mg Tablet PO PRN ×3 (05:48→20:22)
[2019-11-11] MEDS: Carvedilol 6.25 MG TAB PO SCH ×2 (09:11→17:21)
[2019-11-11] MEDS: Spironolactone 25 MG TAB PO SCH (09:12)
[2019-11-11] MEDS: Aspirin Chewable 81 MG TAB PO SCH (09:12)
[2019-11-11] MEDS: Minoxidil 2.5 MG TAB PO SCH (09:12)
[2019-11-11] MEDS: TICAGRELOR 90 MG TABLET PO SCH ×2 (09:13→20:22)
[2019-11-11] MEDS ORDERED: Potassium Chloride 20 MEQ TAB PO SCH (09:30)
--- NOTE | 2019-11-11 10:07 | PDOC.CPN ---
- Subjective Date: 11/11/19 Time: 08:30 Interval history: Still with edema/orthopnea. No arrhythmias overnight. No new complaints. - Review of Systems General: denies: fever/chills, weight/appetite/sleep changes, night sweats, fatigue Respiratory: reports: shortness of breath Cardiovascular: reports: orthopnea Gastrointestinal: denies: nausea, vomiting, diarrhea, constipation, abd pain, GI bleeding Musculoskeletal: reports: swelling Neurological: denies: numbness, syncope, seizure, weakness - Objective Allergies/Adverse Reactions: Allergies Allergy/AdvReac Type Severity Reaction Status Date / Time Penicillins Allergy Verified 10/28/19 11:14 Visit Medications: Current Medications Acetaminophen (Tylenol) 650 mg PO Q4H PRN PRN Reason: Headache/Fever/Mild Pain (1-3) Hydrocodone Bitart/Acetaminophen ([place] 10/325) 1 tab PO Q6H PRN PRN Reason: Severe Pain (7-10) Last Admin: 11/11/19 05:48 Dose: 1 tab Hydrocodone Bitart/Acetaminophen ([place] 5/325) 1 tab PO Q6H PRN PRN Reason: Moderate Pain (4-6) Last Admin: 11/09/19 19:41 Dose: 1 tab Aspirin (Aspirin Chewable) 81 mg PO DAILY [facility] Last Admin: 11/11/19 09:12 Dose: 81 mg Carvedilol (Coreg) 12.5 mg PO BID-[facility] Last Admin: 11/11/19 09:11 Dose: 12.5 mg Clonidine (Catapres) 0.1 mg PO Q4H PRN PRN Reason: Hypertension Last Admin: 11/09/19 14:47 Dose: 0.1 mg Clonidine (Ctcmjgxe-Ipn-4) 0.2 mg TD Q7DAYS [facility] Dextrose/Water (Dextrose 50%) 25 gm SLOW IVP PRN PRN PRN Reason: Hypoglycemia Furosemide (Lasix) 40 mg SLOW IVP DAILY [facility] Glucagon (Glucagon) 1 mg IM PRN PRN PRN Reason: Hypoglycemia Dextrose/Water (D5w) 1,000 mls @ 0 mls/hr IV .Q0M PRN PRN Reason: Hypoglycemia Insulin Human Lispro (Humalog) 0 units SC .MODERATE SLIDING SC PRN; Protocol PRN Reason: MODERATE SLIDING SCALE Last Admin: 11/10/19 17:56 Dose: 2 unit Insulin Human Lispro (Humalog) 0 units SC .BEDTIME SLIDING SC PRN; Protocol PRN Reason: BEDTIME SLIDING SCALE Last Admin: 11/09/19 21:20 Dose: 3 unit Labetalol HCl (Normodyne) 20 mg SLOW IVP Q6H PRN PRN Reason: Hypertension Last Admin: 11/11/19 04:23 Dose: 20 mg Minoxidil (Minoxidil) 10 mg PO DAILY [facility] Last Admin: 11/11/19 09:12 Dose: 10 mg Morphine Sulfate (Morphine) 4 mg IV Q4H PRN PRN Reason: Pain Last Admin: 11/10/19 22:08 Dose: 4 mg Nitroglycerin (Nitrostat) 0.4 mg SL Q5MIN PRN PRN Reason: Chest Pain Potassium Chloride (K-Dur) 40 meq PO NOW [facility] Stop: 11/11/19 11:30 Last Admin: 11/11/19 09:22 Dose: 40 meq Sacubitril/Valsartan (Entresto 24 Mg-26 Mg Tablet) 1 tab PO BID [facility] Stop: 12/10/19 09:01 Last Admin: 11/11/19 09:12 Dose: 1 tab Simvastatin (Zocor) 40 mg PO HS [facility] Last Admin: 11/10/19 21:03 Dose: 40 mg Sodium Chloride (Flush - Normal Saline) 10 ml IVF Q12HR [facility] Last Admin: 11/11/19 09:12 Dose: 10 ml Sodium Chloride (Flush - Normal Saline) 10 ml IVF PRN PRN PRN Reason: Saline Flush Spironolactone (Aldactone) 25 mg PO 0900 [facility] Last Admin: 11/11/19 09:12 Dose: 25 mg Ticagrelor (Brilinta) 90 mg PO BID [facility] Last Admin: 11/11/19 09:13 Dose: 90 mg Vital Signs & Weight: Vital Signs Temp Pulse Resp BP BP BP BP 11/11/19 07:19 97.4 F L 79 18 176/88 H 11/11/19 04:56 70 144/78 H 11/11/19 04:23 82 188/105 H 11/11/19 04:07 97.4 F L 89 16 196/101 H 11/10/19 23:35 98.1 F 71 16 167/85 H Pulse Ox 11/11/19 07:19 96 11/11/19 04:56 11/11/19 04:23 11/11/19 04:07 93 L 11/10/19 23:35 92 L Weight 209 lb 1.6 oz - Physical Exam General: alert & oriented x3, appears well Neck: supple neck Cardiac: regular rate and rhythm Lungs: clear to auscultation, decreased breath sounds Neuro: grossly intact Abdomen: soft, non-tender, distended Extremities: 2+ LE edema Skin: clear Musculoskeletal: no pain - Labs Result Diagrams: 11/10/19 11:59 11/11/19 04:14 Troponin/CKMB CK-MB (CK-2) 4.6 ng/mL (0-6.6) 11/07/19 17:57 Troponin I 0.636 ng/mL (< 0.028) H* 11/08/19 01:19 - Assessment/Plan Assessment/Plan: 1. Acute on chronic systolic CHF (EF 35% on cath, 35-40% on ECHO) 2. NSTEMI with recent PCI - LPL 3. HTN 4. LATANYA/CKD 5. Torsades Will give one more dose of IV lasix with potassium. Increase Entresto. EP consult for AM.
--- NOTE | 2019-11-11 10:44 | PRG ---
DATE OF SERVICE: 11/11/2019 SERVICE: Renal Medicine. SUBJECTIVE: Mr. Sosa is a 49-year-old white male, who is followed up for his labile hypertension as well as acute kidney injury. He is complaining of some leg edema. I feel this is related to his minoxidil. He was started on IV Lasix today. He also had a cardiac cath, recently had a coronary artery stent placement. No other complaints. No chest pain or shortness of breath. OBJECTIVE: VITAL SIGNS: Blood pressure 176/88, heart rate 79, respiratory rate 18, temperature is 97.4. GENERAL: He is noted to be awake, alert, comfortable, not in distress. SKIN: Adequate turgor. HEENT: He has a pinkish conjunctivae. Anicteric sclerae. NECK: No neck mass. No carotid bruits. No JVD. CHEST: No deformities. LUNGS: Clear breath sounds. HEART: Normal sinus rhythm. No murmur. No gallops. No rubs. ABDOMEN: Globular, soft, nontender. No masses. EXTREMITIES: Positive for edema. No deformities. MEDICATIONS: Medications of November 11, 2019, reviewed. LABORATORY DATA: Laboratories of November 11, 2019, sodium 138, potassium 3.6, chloride 101, carbon dioxide 29, BUN 16, creatinine 1.35, calcium 8.8. ASSESSMENT AND PLAN: 1. Acute kidney injury - Superimposed hemodynamically mediated renal dysfunction, currently stable. 2. Chronic renal failure, considering possibility of hypertensive nephropathy. 3. Labile hypertension. Due to complaints of leg edema, we will decrease minoxidil from 10 to 5 mg tablet once a day. At the same time, I will increase spironolactone to 50 mg tablet once a day. 4. Coronary artery disease, status post cardiac catheterization and coronary artery stent placement, doing well. 5. Leg edema, p.r.n. Lasix. Job ID: [id number]
[2019-11-11] MEDS: HumaLOG 300 UNITS/3 ML VIAL SC PRN ×2 (11:09→17:21)
[2019-11-11] MEDS ORDERED: Furosemide 40 MG/4 ML VIAL SLOW IVP SCH (12:30)
--- NOTE | 2019-11-11 12:30 | PRG ---
DATE OF SERVICE: 11/11/2019 SUBJECTIVE: The patient is seen and examined at the bedside. He walks around. He was not able to sleep much last night secondary to shortness of breath. He is much better when he is sitting up. He is still noticing a lot of swelling. OBJECTIVE: VITAL SIGNS: Blood pressure is 154/75, pulse is 70, respiratory rate is 18, O2 saturation 97% on room air, temperature is 98.6. HEENT: His head is atraumatic and normocephalic. Eyes are PERRLA. Sclerae are nonicteric. Oral mucosa is moist. LUNGS: Breath sounds diminished at both bases with a few crackles at both bases. HEART: S1, S2 normal. No S3. No S4. ABDOMEN: Soft. Obese. Nontender. EXTREMITIES: 2+ peripheral edema similar bilaterally, somewhat improved since yesterday. NEUROLOGIC: He is alert and oriented x4. There are no any motor or sensory deficits. LABORATORY DATA: Labs showed hemoglobin of 11.9, hematocrit 35.6. Normal electrolytes. BUN of 16, creatinine 1.35. Glycemia is ranging from 162 to 185. Magnesium 2.0, calcium 8.8. IMPRESSION: 1. Scv-FR-uoemomm elevation myocardial infarction. 2. Syncope. 3. Rib fracture secondary to syncope. 4. Hypertensive syndrome with exacerbation. 5. Torsade de pointes, 1 episode, resolved spontaneously. 6. Volume overload. 7. Renal insufficiency. 8. Cardiomyopathy with left ventricular ejection fraction estimated at 45%. 9. Diabetes mellitus, type 2. PLAN: I am going to start him on 40 mg one dose Lasix once a day every morning. We will continue increased dose of his spironolactone to 50 mg once a day. I recommend to start him on oxygen if he is still short of breath at night and he is not able to sleep despite of our diuresis. His peripheral edema is somewhat better today. His weight is slightly down than what it was yesterday. We are going to continue Accu-Cheks a.c. and at bedtime and use the sliding scale for now. After he is discharged home, he should be able to stay on a combination of glipizide and metformin, and the patient is going to continue his Brilinta since he had stents placed in his coronary artery. Job ID: [id number]
[2019-11-11] MEDS ORDERED: Docusate 100 MG CAP PO PRN (13:28)
[2019-11-11] MEDS: Sacubitril 49 MG/Valsartan 51 MG TABLET PO SCH (20:21)
[2019-11-11] MEDS: Simvastatin 40 MG TAB PO SCH (20:23)
--- NOTE | 2019-11-12 00:13 | CON ---
DATE OF CONSULTATION: PRIMARY CARE PHYSICIAN: Ronlad Gandhi MD REASON FOR CONSULTATION: Syncope, polymorphic ventricular tachycardia. REFERRING IMMIGRATION LAWYER: Rosalio Sahu MD HISTORY OF PRESENT ILLNESS: Mr. Sosa is a pleasant 49-year-old white male with history of hypertension, who was admitted on November 07 with syncope. He had a syncopal spell at home in his living room. He had a brief prodrome of dizziness followed by everything going black. He fell and fractured his ribs on a coffee table. He awoke and called his mother who brought him to the emergency department. He had no loss of bladder or bowel function. No chest discomfort or palpitations as a prodrome. On admission, he was noted to have a mildly elevated troponin 0.6 with elevated creatinine. He was followed by Dr. Percy Sage of Nephrology. Cardiac catheterization on November 09 showed an ejection fraction of 35% with a severely-diseased left posterolateral branch. A 3.0 x 24 mm Synergy drug- eluting stent was placed in the left posterolateral branch. He had mild LAD disease and severe disease in a small nondominant right coronary artery. Ejection fraction was 35% to 40% with inferior hypokinesis. Echocardiogram on November 10 showed ejection fraction of 35% to 40% with inferior hypokinesis. Left atrium is moderately dilated with normal valvular structures. Mild mitral regurgitation. On November 10, he had a 7-second episode of polymorphic ventricular tachycardia. Potassium was normal at that time. Magnesium was normal at 1.9 as well. He had no exertional chest discomfort or dyspnea prior to his admission. He did have peripheral edema since starting his blood pressure medication. PAST MEDICAL HISTORY: 1. Hypertension. 2. Chronic kidney disease. 3. Diastolic dysfunction. PAST SURGICAL HISTORY: None. ALLERGIES: PENICILLIN. CURRENT MEDICATIONS: See the MAR. FAMILY HISTORY: He is adopted. SOCIAL HISTORY: . He lives here in [place] and his mother lives nearby and is with him today. 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 He has a 27-year-old son. He dips snuff. He does not smoke and has no significant alcohol use. REVIEW OF SYSTEMS: Positive for edema. Negative for seizures, prior syncope, stroke, orthopnea, paroxysmal nocturnal dyspnea, melena, and bright red blood per rectum. He golfs and shoots rifles and short guns right handed on occasion. PHYSICAL EXAMINATION: GENERAL: Alert and oriented x4. No apparent distress. VITAL SIGNS: Blood pressure is afebrile, blood pressure 143/84, pulse 68, and respiratory rate 12. Height 5 feet 6 inches, weight 209 pounds. HEENT: No lesions. Sclerae clear. SKIN: No lesions. CARDIOVASCULAR: Regular rate and rhythm. No murmurs, gallops, or rubs. LUNGS: Clear to auscultation bilaterally. EXTREMITIES: 1+ edema bilaterally. LABORATORY DATA: Hemoglobin 11.9, hematocrit 35.6, and platelets 210. Sodium 138, potassium 3.6, creatinine 1.35, glucose 156. IMAGING STUDIES: EKG; normal sinus rhythm with left atrial enlargement and inferior T-wave inversion with a corrected QT interval prolonged at 479 milliseconds. IMPRESSION: 1. Syncope. 2. Prolonged QT interval, not on medication or with no electrolyte imbalances to account for his prolonged QT interval. 3. Polymorphic ventricular tachycardia 7 seconds in duration. 4. Acute congestive heart failure with ejection fraction of 35% to 40%. 5. Coronary artery disease with percutaneous coronary intervention of a small left posterolateral branch. RECOMMENDATIONS: I have recommended a dual-chamber ICD insertion given his syncope, polymorphic ventricular tachycardia, prolonged QT interval, and lack of definite reversible cause of his polymorphic ventricular tachycardia. Although he had recent intervention, this was in a small posterolateral branch and does not account for his cardiomyopathy. In addition, his polymorphic ventricular tachycardia occurred more than 48 hours after diagnosis of his non-ST elevation myocardial infarction. We had a lengthy discussion, he states that he will consider his options and would like to re-discuss tomorrow. I strongly recommended LifeVest prior to discharge if he decides to defer dual-chamber ICD at this time. However, I have recommended dual ICD insertion prior to discharge. Job ID: [id number] [facility]
[2019-11-12] MEDS: HYDROcodone/Acetaminophen 10/325 mg Tablet PO PRN ×2 (01:56→18:33)
[2019-11-12 04:59] LABS: Anion Gap 10 mmol/L (10-20); BUN (Urea Nitrogen) 17 mg/dL (8.4-25.7); Calc. Creatinine Clearance 85 mL/min (70-130); Calcium 8.9 mg/dL (7.8-10.44); Carbon Dioxide 30 mmol/L (22-29); Chloride 103 mmol/L (98-107); Estimated GFR-MDRD 54; Glucose 128 mg/dL (70-105); Potassium 3.4 mmol/L (3.5-5.1); Sodium 140 mmol/L (136-145)
[2019-11-12] MEDS: TICAGRELOR 90 MG TABLET PO SCH ×2 (08:21→20:29)
[2019-11-12] MEDS: Aspirin Chewable 81 MG TAB PO SCH (08:21)
[2019-11-12] MEDS: Sacubitril 49 MG/Valsartan 51 MG TABLET PO SCH ×2 (08:22→20:29)
[2019-11-12] MEDS: Carvedilol 6.25 MG TAB PO SCH ×2 (08:22→17:23)
[2019-11-12] MEDS: Spironolactone 25 MG TAB PO SCH (08:23)
[2019-11-12] MEDS: Furosemide 40 MG/4 ML VIAL SLOW IVP SCH (08:23)
[2019-11-12] MEDS: Minoxidil 2.5 MG TAB PO SCH (08:23)
--- NOTE | 2019-11-12 08:58 | PRG ---
DATE OF SERVICE: 11/12/2019 SERVICE: Renal Medicine. SUBJECTIVE: Mr. Sosa is a 49-year-old white male, followed up for his labile hypertension, chronic renal failure, and recently underwent status post cardiac cath with coronary artery stent placement. He also developed polymorphic ventricular tachycardia to explain his most likely syncopal episode. He was seen by Dr. Schumacher, who recommended AICD placement. He is somewhat hesitant to proceed with that procedure. He was also complaining of leg swelling. He has been receiving diuretics. Recently, his losartan was converted to sacubitril. The patient denies any chest pain or shortness of breath. OBJECTIVE: VITAL SIGNS: Blood pressure is noted at 160/93 with a heart rate of 74, respiratory rate 14, temperature 97.8, pulse ox 95%. GENERAL: Noted to be awake, alert, standing comfortable, not in distress. SKIN: Adequate turgor. HEENT: Pinkish conjunctivae. Anicteric sclerae. NECK: No neck mass. No carotid bruits. No JVD. CHEST: No deformities. LUNGS: Clear breath sounds. HEART: Normal sinus rhythm. No murmur. No gallops. No rubs. ABDOMEN: Globular, soft, nontender. No masses. EXTREMITIES: Positive for edema. MEDICATIONS: Medications of November 12, 2019, were reviewed. LABORATORY DATA: Laboratories of November 12, 2019; sodium 140, potassium 3.4, chloride 103, carbon dioxide 30, BUN 17, creatinine 1.38, glucose 128, calcium 8.9. Cholesterol 175, HDL 38. ASSESSMENT AND PLAN: 1. Chronic renal failure-fluctuating creatinine. Creatinine noted to be stable at 1.38, yesterday this was 1.35. Please note, he is on sacubitril and spironolactone and has received diuretics-Lasix. Continue supportive care. No indication for any dialytic intervention. 2. Labile hypertension, improving. Continue current antihypertensive regimen. Recently spironolactone was increased from 25 to 50 mg tablet once a day. 3. Syncopal episode/polymorphic ventricular tachycardia-recommendation for automatic implantable cardioverter-defibrillator placement by Dr. Marie. 4. Coronary artery disease, status post cardiac cath with coronary artery stent placement. 5. I agree with current management. The patient to rediscuss with Dr. Marie about implantable cardioverter-defibrillator placement. Recheck basic metabolic panel and CBC in a.m. Job ID: [id number]
[2019-11-12] MEDS ORDERED: Furosemide 40 MG/4 ML VIAL SLOW IVP SCH ×3 (09:00)
[2019-11-12] MEDS: cloNIDine 0.1 MG TAB PO PRN (09:37)
[2019-11-12] MEDS: HumaLOG 300 UNITS/3 ML VIAL SC PRN ×2 (11:41→17:25)
[2019-11-12 12:15] LABS: Hemoglobin 13.7 g/dL (14.0-18.0); Platelet Count 258 thou/uL (130-400)
--- NOTE | 2019-11-12 12:59 | DIS ---
DATE OF ADMISSION: 11/07/2019 DATE OF DISCHARGE: 11/12/2019 PRIMARY CARE PROVIDER: Ronald Gandhi MD DISCHARGE DISPOSITION: Discharged to home. FINAL DIAGNOSES: Coronary artery disease, post PCI; acute on chronic systolic heart failure; cardiomyopathy, 35% to 40% ejection fraction; polymorphic ventricular tachycardia; malignant hypertension; diabetes mellitus type 2 with chronic kidney disease stage 3; [id number]-ledhioaag myocardial infarction. DISCHARGE MEDICATIONS: 1. Aldactone 25 mg a day. 2. Coreg 12.5 mg twice a day. 3. Minoxidil 5 mg a day. 4. Clonidine TTS-2 patch on skin change every 7 days. 5. Brilinta 90 mg twice a day. 6. Zocor 40 mg a day. 7. Entresto 49/51 one twice a day. 8. Aspirin 81 mg a day. ALLERGIES: TO PENICILLINS. DIET: Diabetic. PENDING AT THE TIME OF DISCHARGE: Nothing. HOSPITAL COURSE: [facility] He presented emergency room with a syncopal episode, some chest wall pain, left rib fracture secondary to syncopal event, hypertensive urgency with malignant hypertension, chronic kidney disease stage 3, and elevated troponins. Dr. Rosalio Sahu was consulted. 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 Echocardiogram revealed at 35% to 40% EF. Consultations during hospital stay, Dr. Sahu, Cardiology; Dr. Navid Sage, Nephrology. During his hospital stay, he had polymorphic ventricular tachycardia. He was seen by Dr. Marie, demolition expert, who hardly recommended an AICD and if not, a LifeVest. I visited the patient this morning at length. He is adamant that he does not want an AICD or a LifeVest. He is adamant to discussing it with Dr. Marie and Dr. Sahu, would not change his mind. He is adamant he wishes to be discharged today. The vital signs are stable. Cardiorespiratory exam is normal. Pertinent laboratory during his stay; CBC was unremarkable except for hemoglobin of 13.6. His chemistries were normal. Electrolytes, he had elevated creatinine consistent with chronic kidney disease stage 3, old. He had some minimal elevations of his transaminases, most likely recommended to a non-ST elevation [place]. Initial troponin 0.29, followup 0.52, followup 0.64. The patient has agreed to see Dr. Gandhi in 3 days for followup. He will see Dr. Sahu in followup. He has been instructed to call Dr. Sahu's office. Prescriptions have been written for his new medicines. The purpose of each was discussed with him. 40 minutes spent preparing this discharge. Job ID: [id number]
--- NOTE | 2019-11-12 17:49 | PDOC.CPN ---
- Subjective Date: 11/12/19 Time: 17:46 Interval history: He is doing well. He saw EP and they recommended AICD placement. - Review of Systems General: denies: fever/chills, weight/appetite/sleep changes, night sweats, fatigue Respiratory: denies: cough, congestion, shortness of breath, exercise intolerance Cardiovascular: denies: chest pain, palpitation, edema, paroxysmal nocturnal dyspnea, orthopnea Gastrointestinal: denies: nausea, vomiting, diarrhea, constipation, abd pain, GI bleeding Musculoskeletal: denies: pain, tenderness, stiffness, swelling, arthritis/ arthralgias Neurological: denies: numbness, syncope, seizure, weakness - Objective Allergies/Adverse Reactions: Allergies Allergy/AdvReac Type Severity Reaction Status Date / Time Penicillins Allergy Verified 10/28/19 11:14 Visit Medications: Current Medications Acetaminophen (Tylenol) 650 mg PO Q4H PRN PRN Reason: Headache/Fever/Mild Pain (1-3) Hydrocodone Bitart/Acetaminophen (Hortense 10/325) 1 tab PO Q6H PRN PRN Reason: Severe Pain (7-10) Last Admin: 11/12/19 01:56 Dose: 1 tab Hydrocodone Bitart/Acetaminophen (Hortense 5/325) 1 tab PO Q6H PRN PRN Reason: Moderate Pain (4-6) Last Admin: 11/09/19 19:41 Dose: 1 tab Aspirin (Aspirin Chewable) 81 mg PO DAILY [facility] Last Admin: 11/12/19 08:21 Dose: 81 mg Carvedilol (Coreg) 12.5 mg PO BID[facility] Last Admin: 11/12/19 17:23 Dose: 12.5 mg Clonidine (Catapres) 0.1 mg PO Q4H PRN PRN Reason: Hypertension Last Admin: 11/12/19 09:37 Dose: 0.1 mg Clonidine (Odokqrmw-Gku-4) 0.2 mg TD Q7DAYS [facility] Dextrose/Water (Dextrose 50%) 25 gm SLOW IVP PRN PRN PRN Reason: Hypoglycemia Docusate Sodium (Colace) 100 mg PO BIDPRN PRN PRN Reason: Constipation Furosemide (Lasix) 40 mg SLOW IVP DAILY [facility] Last Admin: 11/12/19 08:23 Dose: 40 mg Glucagon (Glucagon) 1 mg IM PRN PRN PRN Reason: Hypoglycemia Dextrose/Water (D5w) 1,000 mls @ 0 mls/hr IV .Q0M PRN PRN Reason: Hypoglycemia Insulin Human Lispro (Humalog) 0 units SC .MODERATE SLIDING SC PRN; Protocol PRN Reason: MODERATE SLIDING SCALE Last Admin: 11/12/19 17:25 Dose: 2 unit Insulin Human Lispro (Humalog) 0 units SC .BEDTIME SLIDING SC PRN; Protocol PRN Reason: BEDTIME SLIDING SCALE Last Admin: 11/09/19 21:20 Dose: 3 unit Labetalol HCl (Normodyne) 20 mg SLOW IVP Q6H PRN PRN Reason: Hypertension Last Admin: 11/11/19 04:23 Dose: 20 mg Minoxidil (Minoxidil) 5 mg PO DAILY [facility] Last Admin: 11/12/19 08:23 Dose: 5 mg Morphine Sulfate (Morphine) 4 mg IV Q4H PRN PRN Reason: Pain Last Admin: 11/10/19 22:08 Dose: 4 mg Nitroglycerin (Nitrostat) 0.4 mg SL Q5MIN PRN PRN Reason: Chest Pain Sacubitril/Valsartan (Entresto 49 Mg-51 Mg Tablet) 1 tab PO BID [facility] Last Admin: 11/12/19 08:22 Dose: 1 tab Simvastatin (Zocor) 40 mg PO HS [facility] Last Admin: 11/11/19 20:23 Dose: Not Given Sodium Chloride (Flush - Normal Saline) 10 ml IVF Q12HR [facility] Last Admin: 11/12/19 08:29 Dose: 10 ml Sodium Chloride (Flush - Normal Saline) 10 ml IVF PRN PRN PRN Reason: Saline Flush Spironolactone (Aldactone) 50 mg PO 0900 [facility] Last Admin: 11/12/19 08:23 Dose: 50 mg Ticagrelor (Brilinta) 90 mg PO BID [facility] Last Admin: 11/12/19 08:21 Dose: 90 mg Vital Signs & Weight: Vital Signs Temp Pulse Resp BP BP BP Pulse Ox 11/12/19 17:23 182/103 H 11/12/19 15:50 98.0 F 77 18 152/78 H 95 11/12/19 11:43 97.5 F L 76 16 141/77 H 93 L 11/12/19 09:47 174/108 H 11/12/19 09:37 174/108 H 11/12/19 08:22 194/116 H 11/12/19 08:10 95 11/12/19 08:00 98.0 F 85 18 194/116 H 95 Weight 211 lb 4.8 oz - Physical Exam General: alert & oriented x3 HEENT: mucus membranes moist Neck: supple neck Cardiac: regular rate and rhythm Lungs: normal breath sounds Neuro: grossly intact Abdomen: active bowel sounds Extremities: no edema Skin: clear Musculoskeletal: no pain - Labs Result Diagrams: 11/12/19 12:06 11/12/19 03:52 Troponin/CKMB CK-MB (CK-2) 4.6 ng/mL (0-6.6) 11/07/19 17:57 Troponin I 0.636 ng/mL (< 0.028) H* 11/08/19 01:19 - Telemetry Sinus rhythms and dysrhythmias: sinus rhythm - Assessment/Plan Assessment/Plan: 1. Acute on chronic systolic CHF (EF 35% on cath, 35-40% on ECHO) 2. NSTEMI with recent PCI to LPL with ELIZA, large vessel. 3. HTN 4. LATANYA/CKD 5. Torsades de Pointes PLAN: - Long conversation about AICD, he wanted to go home and come see Dr. Marie as an poutpatient o set up an AICD and wear a lifevest in the men time. After discussion he has decided he will stay and do this tomorrow at 7am. - Continue other meds.
--- NOTE | 2019-11-12 18:58 | EKG ---
Test Reason : POST STENT Blood Pressure : / mmHG Vent. Rate : 085 BPM Atrial Rate : 085 BPM P-R Int : 174 ms QRS Dur : 090 ms QT Int : 394 ms P-R-T Axes : 063 -18 138 degrees QTc Int : 468 ms Normal sinus rhythm Inferior infarct (cited on or before 07-NOV-2019) T wave abnormality, consider lateral ischemia Abnormal ECG When compared with ECG of 07-NOV-2019 17:42, (Unconfirmed) T wave inversion more evident in Lateral leads Confirmed by DANIEL TORRES, SErika ([id number]) on 11/12/2019 6:57:35 PM Referred By: JULIANA Confirmed By:DR. New SANCHEZ MD
--- NOTE | 2019-11-12 19:00 | EKG ---
Test Reason : Blood Pressure : / mmHG Vent. Rate : 082 BPM Atrial Rate : 082 BPM P-R Int : 180 ms QRS Dur : 090 ms QT Int : 410 ms P-R-T Axes : 065 -10 203 degrees QTc Int : 479 ms Normal sinus rhythm Possible Left atrial enlargement Poor R wave progression T wave abnormality, consider inferior ischemia Prolonged QT Abnormal ECG When compared with ECG of 09-NOV-2019 13:33, (Unconfirmed) Criteria for Inferior infarct are no longer Present Inverted T waves have replaced nonspecific T wave abnormality in Inferior leads T wave inversion less evident in Lateral leads Confirmed by DANIEL TORRES, DR. Wolff ([id number]) on 11/12/2019 7:00:09 PM Referred By: JULIANA Confirmed By:DR. New SANCHEZ MD
[2019-11-12] MEDS ORDERED: Potassium Chloride 20 MEQ TAB PO SCH (19:15)
[2019-11-12] MEDS: Simvastatin 40 MG TAB PO SCH (20:29)
[2019-11-13] MEDS: HYDROcodone/Acetaminophen 10/325 mg Tablet PO PRN ×2 (02:19→09:57)
[2019-11-13 04:45] LABS: #Eosinphils 0.2 thou/uL (0.0-0.7); #Lymphocytes 1.1 thou/uL (1.20-3.40); #Neutrophils 5.6 thou/uL (1.40-6.50); %Basophils 0.4 % (0.0-1.0); %Eosinophils 2.8 % (0.0-10.0); %Lymphocytes 13.6 % (21.0-51.0); %Monocytes 12.2 % (0.0-10.0); %Neutrophils 70.9 % (42.0-75.0); Hemoglobin 11.8 g/dL (14.0-18.0); Mean Corpuscular HGB CONC 32.7 g/dL (32.0-36.0); Mean Corpuscular Hemoglobin 27.7 pg (27.0-31.0); Mean Corpuscular Volume 84.7 fL (78.0-98.0); Mean Platelet Volume 9.1 fL (7.4-10.4); Platelet Count 224 thou/uL (130-400); RBC Distribution Width 13.5 % (11.5-14.5); Red Blood Cell (RBC) Count 4.26 mill/uL (4.70-6.10); White Blood Cell (WBC) Count 7.9 thou/uL (4.8-10.8)
[2019-11-13 05:10] LABS: Anion Gap 11 mmol/L (10-20); BUN (Urea Nitrogen) 19 mg/dL (8.4-25.7); Calc. Creatinine Clearance 79 mL/min (70-130); Calcium 8.4 mg/dL (7.8-10.44); Carbon Dioxide 27 mmol/L (22-29); Chloride 105 mmol/L (98-107); Estimated GFR-MDRD 50; Glucose 148 mg/dL (70-105); Potassium 3.7 mmol/L (3.5-5.1); Sodium 139 mmol/L (136-145)
[2019-11-13] MEDS ORDERED: Vancomycin 1.5 GRAM/300 ML BAG 1.5 GM in Premix Bag 1 BAG IVPB SCH (05:30)
[2019-11-13] MEDS ORDERED: Vancomycin HCl 500 MG VIAL ONE (06:44)
[2019-11-13] MEDS ORDERED: Clindamycin/D5W 600 mg/50 ml Premix Bag ONE (07:04)
[2019-11-13] MEDS ORDERED: Midazolam HCl 2 mg/2 ml Vial ONE ×3 (07:12→08:23)
[2019-11-13] MEDS ORDERED: Fentanyl 100 MCG/2 ML VIAL ONE (07:12)
[2019-11-13] MEDS ORDERED: Potassium Chloride 20 MEQ TAB PO SCH (09:00)
[2019-11-13] MEDS: Spironolactone 25 MG TAB PO SCH (09:28)
[2019-11-13] MEDS: Carvedilol 6.25 MG TAB PO SCH ×2 (09:28→17:29)
[2019-11-13] MEDS: TICAGRELOR 90 MG TABLET PO SCH (09:29)
[2019-11-13] MEDS: Furosemide 40 MG/4 ML VIAL SLOW IVP SCH (09:29)
[2019-11-13] MEDS: Minoxidil 2.5 MG TAB PO SCH (09:29)
[2019-11-13] MEDS: Aspirin Chewable 81 MG TAB PO SCH (09:29)
[2019-11-13] MEDS: Sacubitril 49 MG/Valsartan 51 MG TABLET PO SCH (09:29)
[2019-11-13] MEDS ORDERED: Iopamidol 370 76% 50 ML VIAL FS ONE (09:33)
[2019-11-13 10:12] LABS: Direct LDL Cholesterol 108 mg/dL (0-99)
[2019-11-13] MEDS: HumaLOG 300 UNITS/3 ML VIAL SC PRN (11:29)
[2019-11-13 15:23] VITALS: BP 150/75; TEMP 97.8
--- NOTE | 2019-11-13 19:59 | PDOC.CPN ---
- Subjective Date: 11/13/19 Time: 12:00 Interval history: He had his AICD placed this morning and is doing well. - Review of Systems General: denies: fever/chills, weight/appetite/sleep changes, night sweats, fatigue Respiratory: denies: cough, congestion, shortness of breath, exercise intolerance Cardiovascular: denies: chest pain, palpitation, edema, paroxysmal nocturnal dyspnea, orthopnea Gastrointestinal: denies: nausea, vomiting, diarrhea, constipation, abd pain, GI bleeding Musculoskeletal: denies: pain, tenderness, stiffness, swelling, arthritis/ arthralgias Neurological: denies: numbness, syncope, seizure, weakness - Objective Allergies/Adverse Reactions: Allergies Allergy/AdvReac Type Severity Reaction Status Date / Time Penicillins Allergy Verified 10/28/19 11:14 Vital Signs & Weight: Vital Signs Temp Pulse Resp BP BP Pulse Ox 11/13/19 15:21 97.8 F 69 18 150/75 H 97 11/13/19 11:05 98.7 F 78 18 150/77 H 97 11/13/19 09:20 97.9 F 77 18 180/100 H 96 Weight 209 lb 8 oz - Physical Exam General: alert & oriented x3 HEENT: mucus membranes moist Neck: supple neck Cardiac: regular rate and rhythm Lungs: clear to auscultation Neuro: grossly intact Abdomen: active bowel sounds Extremities: no edema Skin: clear Musculoskeletal: no pain - Labs Result Diagrams: 11/13/19 04:17 11/13/19 04:17 Troponin/CKMB CK-MB (CK-2) 4.6 ng/mL (0-6.6) 11/07/19 17:57 Troponin I 0.636 ng/mL (< 0.028) H* 11/08/19 01:19 - Telemetry Sinus rhythms and dysrhythmias: sinus rhythm - Assessment/Plan Assessment/Plan: 1. Acute on chronic systolic CHF (EF 35% on cath, 35-40% on ECHO) 2. NSTEMI with recent PCI to LPL with ELIZA, large vessel. 3. HTN 4. LATANYA/CKD 5. Torsades de Pointes PLAN: - AICD in place. - May discharge home. - Follow up in 1-2 months.
--- NOTE | 2019-11-14 07:56 | DIS ---
DATE OF ADMISSION: 11/07/2019 DATE OF DISCHARGE: 11/13/2019 ADDENDUM: The discharge summary including medications, etc. is correct except for the patient changed his mind yesterday and decided to have the AICD placed, which had been recommended. Today, Dr. Marie placed an AICD in his left upper chest. Dr. Marie and Dr. Sahu have agreed the patient can now go home post AICD. He is to keep the three day followup with his PCP. He is to keep the followup with Dr. Sahu. Follow up with Dr. Marie per his suggestions, medications, etc. are the same. Job ID: [id number]
[2019-11-16] MEDS ORDERED: cloNIDine 0.2mg/24 Hour PATCH TD SCH ×2 (09:00)
== END 2019-11-13 17:36 | disposition home or self-care (01) | DRG 224 ==
LOC: ERS 17:30 → 2NO 23:46 → OBSVTOIN 23:53
PROVIDERS: ADMIT Hospitalist; ATTEND Emergency Medicine
PROC: 027034Z Dilation of Coronary Artery, One Artery with Drug-eluting Intraluminal Device, Percutaneous Approach (ICD-10-PCS; principal; 2019-11-09)
PROC: 4A023N7 Measurement of Cardiac Sampling and Pressure, Left Heart, Percutaneous Approach (ICD-10-PCS; 2019-11-09)
PROC: B2111ZZ Fluoroscopy of Multiple Coronary Arteries using Low Osmolar Contrast (ICD-10-PCS; 2019-11-09)
PROC: B2151ZZ Fluoroscopy of Left Heart using Low Osmolar Contrast (ICD-10-PCS; 2019-11-09)
PROC: 0JH609Z Insertion of Cardiac Resynchronization Defibrillator Pulse Generator into Chest Subcutaneous Tissue and Fascia, Open Approach (ICD-10-PCS; 2019-11-13)
PROC: 02HK3KZ Insertion of Defibrillator Lead into Right Ventricle, Percutaneous Approach (ICD-10-PCS; 2019-11-13)
PROC: 02H63KZ Insertion of Defibrillator Lead into Right Atrium, Percutaneous Approach (ICD-10-PCS; 2019-11-13)
DX: I25.10 Atherosclerotic heart disease of native coronary artery without angina pectoris (principal); I21.A1 Myocardial infarction type 2; I50.23 Acute on chronic systolic (congestive) heart failure; I16.1 Hypertensive emergency; S22.42XA Multiple fractures of ribs, left side, initial encounter for closed fracture; N17.9 Acute kidney failure, unspecified; I50.32 Chronic diastolic (congestive) heart failure; I47.2 Ventricular tachycardia; I13.0 Hypertensive heart and chronic kidney disease with heart failure and stage 1 through stage 4 chronic kidney disease, or unspecified chronic kidney disease; I42.9 Cardiomyopathy, unspecified; E66.9 Obesity, unspecified; N18.3 Chronic kidney disease, stage 3 (moderate); W01.190A Fall on same level from slipping, tripping and stumbling with subsequent striking against furniture, initial encounter; Z88.0 Allergy status to penicillin; Z68.33 Body mass index [BMI] 33.0-33.9, adult
CPT/HCPCS: 33249; 36005; 36415; 36416; 70450; 71046; 74177; 75820; 80048; 80053; 81003; 81015; 82465; 82550; 82553; 82565; 83036; 83690; 83718; 83721; 83735; 83880; 84484; 85014; 85018; 85025; 85049; 85347; 86803; 87340; 90471; 90715; 92928; 93005; 93010; 93306; 93458; 93798; 96374; 96375; 99152; 99153; C1721; C1769; C1777; C1874; C1898; C9600; J1644; J1650; J1940; J2001; J2250; J2270; J3010; J3370; J3475; J3490; J7050; J7608; Q9967

== ENCOUNTER 2019-11-16 17:42 | Observation (INO) | payer BC ==
[2019-11-16 18:28] LABS: #Eosinphils 0.2 thou/uL (0.0-0.7); #Lymphocytes 0.9 thou/uL (1.20-3.40); #Monocytes 0.8 thou/uL (0.11-0.59); %Basophils 0.1 % (0.0-1.0); %Eosinophils 2.6 % (0.0-10.0); %Monocytes 9.8 % (0.0-10.0); %Neutrophils 76.5 % (42.0-75.0); Hemoglobin 11.5 g/dL (14.0-18.0); Mean Corpuscular HGB CONC 32.5 g/dL (32.0-36.0); Mean Corpuscular Hemoglobin 28.1 pg (27.0-31.0); Mean Corpuscular Volume 86.5 fL (78.0-98.0); Mean Platelet Volume 8.9 fL (7.4-10.4); Platelet Count 218 thou/uL (130-400); RBC Distribution Width 13.5 % (11.5-14.5); Red Blood Cell (RBC) Count 4.11 mill/uL (4.70-6.10); White Blood Cell (WBC) Count 7.8 thou/uL (4.8-10.8)
[2019-11-16 18:34] LABS: INR-International Normal Ratio 1.1; PTT 30.8 SEC (22.9-36.1); Prothrombin Time 14.4 SEC (12.0-14.7)
[2019-11-16 18:48] LABS: Anion Gap 14 mmol/L (10-20); BUN (Urea Nitrogen) 20 mg/dL (8.4-25.7); Calc. Creatinine Clearance 0 mL/min (70-130); Calcium 8.8 mg/dL (7.8-10.44); Carbon Dioxide 24 mmol/L (22-29); Chloride 104 mmol/L (98-107); Estimated GFR-MDRD 45; Glucose 111 mg/dL (70-105); Sodium 138 mmol/L (136-145)
--- NOTE | 2019-11-16 19:21 | ULT ---
DOPPLER VENOUS ULTRASOUND LEFT UPPER EXTREMITY INDICATION: Left arm swelling following defibrillator placement on Tuesday with swelling at the defib rillator site TECHNIQUE: Grayscale, color Doppler spectral Doppler images were obtained of the left internal jugula r vein, left subclavian vein, left axillary vein, left brachial vein, left basilic vein, left ulnar vein and left radial vein. FINDINGS: There is normal compression, flow and augmentation seen within the venous structures of the left upper extremity. There is a hematoma seen near the defibrillator generator site measuring 5.9 x 2.4 x 2.4 cm. Small amount of edema seen within subcutaneous tissues of the left upper extremit y. IMPRESSION: No evidence of venous thrombosis within the left upper extremity. 5.9 cm soft tissue sharon alina seen near the defibrillator generator site of the left chest wall.
[2019-11-17 02:11] VITALS: BMI 33.6
[2019-11-17] MEDS: Acetaminophen/Codeine 30-300mg Tablet PO PRN ×4 (04:21→22:24)
[2019-11-17] MEDS ORDERED: hydrALAZINE 20 MG/ML VIAL SLOW IVP PRN (04:23)
[2019-11-17] MEDS ORDERED: Ondansetron PF 4 MG/2 ML Vial IVP PRN (04:23)
[2019-11-17] MEDS ORDERED: Labetalol HCl 100 MG/20 ML VIAL SLOW IVP PRN (04:23)
[2019-11-17] MEDS ORDERED: Morphine 2 MG/ML SYRINGE SLOW IVP PRN (04:23)
[2019-11-17] MEDS ORDERED: Promethazine HCl 12.5 MG in Sodium Chloride 0.9% 50 ML IVPB PRN (04:23)
[2019-11-17] MEDS ORDERED: cloNIDine 0.1 MG TAB PO PRN (04:23)
[2019-11-17] MEDS ORDERED: HYDROcodone/Acetaminophen 5/325 mg Tablet PO PRN ×2 (04:24)
[2019-11-17] MEDS ORDERED: Senokot S 8.6-50 MG TAB PO PRN (04:24)
[2019-11-17] MEDS ORDERED: Bisacodyl 5 MG TAB PO PRN (04:24)
[2019-11-17] MEDS ORDERED: Acetaminophen 325 MG TAB PO PRN (04:24)
--- NOTE | 2019-11-17 04:39 | PDOC.HHP ---
Hospitalist ROS - Medication Medications: Active Medications Generic Name Dose Route Start Last Admin Trade Name Rosi PRN Reason Stop Dose Admin Acetaminophen/Codeine Phosphate 1 tab 11/17/19 04:17 11/17/19 04:21 Tylenol #3 PO 1 tab Q4H PRN Administration Pain Hospitalist Results - Labs Result Diagrams: 11/16/19 18:21 11/16/19 18:21 Lab results: WBC 7.8 thou/uL (4.8-10.8) 11/16/19 18:21 Hgb 11.5 g/dL (14.0-18.0) L 11/16/19 18:21 Hct 35.6 % (42.0-52.0) L 11/16/19 18:21 MCV 86.5 fL (78.0-98.0) 11/16/19 18:21 Plt Count 218 thou/uL (130-400) 11/16/19 18:21 Neutrophils % 76.5 % (42.0-75.0) H 11/16/19 18:21 Sodium 138 mmol/L (136-145) 11/16/19 18:21 Potassium 4.0 mmol/L (3.5-5.1) 11/16/19 18:21 Chloride 104 mmol/L (98-107) 11/16/19 18:21 Carbon Dioxide 24 mmol/L (22-29) 11/16/19 18:21 BUN 20 mg/dL (8.4-25.7) 11/16/19 18:21 Creatinine 1.61 mg/dL (0.7-1.3) H 11/16/19 18:21 Glucose 111 mg/dL (70-105) H 11/16/19 18:21 Calcium 8.8 mg/dL (7.8-10.44) 11/16/19 18:21
[2019-11-17 05:09] LABS: #Eosinphils 0.2 thou/uL (0.0-0.7); #Neutrophils 5.7 thou/uL (1.40-6.50); %Basophils 0.4 % (0.0-1.0); %Eosinophils 2.3 % (0.0-10.0); %Lymphocytes 12.8 % (21.0-51.0); %Monocytes 12.1 % (0.0-10.0); %Neutrophils 72.4 % (42.0-75.0); Hemoglobin 10.7 g/dL (14.0-18.0); Mean Corpuscular HGB CONC 32.6 g/dL (32.0-36.0); Mean Corpuscular Hemoglobin 28.2 pg (27.0-31.0); Mean Corpuscular Volume 86.4 fL (78.0-98.0); Mean Platelet Volume 8.6 fL (7.4-10.4); Platelet Count 229 thou/uL (130-400); RBC Distribution Width 13.5 % (11.5-14.5); Red Blood Cell (RBC) Count 3.81 mill/uL (4.70-6.10); White Blood Cell (WBC) Count 7.9 thou/uL (4.8-10.8)
[2019-11-17] MEDS: Carvedilol 6.25 MG TAB PO SCH ×2 (08:56→17:52)
[2019-11-17] MEDS: Spironolactone 25 MG TAB PO SCH (08:57)
[2019-11-17] MEDS: Minoxidil 2.5 MG TAB PO SCH (08:57)
[2019-11-17] MEDS: Polyethylene Glycol 3350 17 GM Packet PO SCH (08:58)
[2019-11-17] MEDS ORDERED: cloNIDine 0.2mg/24 Hour PATCH TD SCH (09:00)
--- NOTE | 2019-11-17 09:16 | CON ---
DATE OF CONSULTATION: 11/17/2019 REASON FOR CONSULTATION: Postoperative hematoma. HISTORY OF PRESENT ILLNESS: Mr. Sosa is a pleasant 49-year-old white male with a recent history of syncope, non-ST elevated myocardial infarction, percutaneous coronary intervention, and polymorphic ventricular tachycardia. Five days ago, I placed a Medtronic dual-chamber ICD for his syncope and polymorphic ventricular tachycardia. He was placed on aspirin and Brilinta after his stent. Yesterday , he developed swelling at the incision site of his left arm. He saw Jesse Rizo in our office. Later that evening, he presented to the Emergency Department with increased swelling. He was admitted. He took his Brilinta last night; however, that has been discontinued through the remainder of his hospital stay. The ER, discussed this with Dr. Sahu. Sandbag was placed last night with improvement in his hematoma. He had some back discomfort from lying flat, but he has no chest discomfort. No dyspnea. No syncope. No palpitations. Venous ultrasound of the left upper extremity last night showed a 5.9 cm hematoma. There was no evidence of thrombus in the venous system. PAST MEDICAL HISTORY: 1. Coronary artery disease with recent non-ST elevation myocardial infarction. 2. Polymorphic ventricular tachycardia. 3. Hypertension. 4. Medtronic dual-chamber ICD as above. ALLERGIES: PENICILLIN. 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 Lives here in [place] nearby the hospital. Nonsmoker. Occasional alcohol. REVIEW OF SYSTEMS: No fever or chills. No orthopnea or edema. He has mild chest discomfort really at incision site. No substernal chest discomfort. No melena, bright red blood per rectum, or hematemesis. No syncope or palpitations. PHYSICAL EXAMINATION: GENERAL: Alert and oriented x4. No apparent distress. Well dressed and groomed. VITAL SIGNS: Afebrile, blood pressure 158/87, respiratory rate 12, and pulse 68. HEENT: No lesions. Sclerae clear. CARDIOVASCULAR: Regular rate and rhythm. No murmurs, gallops, or rubs. LUNGS: Clear to auscultation bilaterally. Normal respiratory effort. SKIN: Incision intact. There is a hematoma over the incision site, which appears soft. He has edema of his left upper extremity. EXTREMITIES: No cyanosis, clubbing, or leg edema. ABDOMEN: Ecchymoses at his prior injections for insulin and Lovenox during his prior hospital stay. LABORATORY DATA: WBC 7.9 and hemoglobin 10.7. Sodium 138, potassium 4.0, BUN 20, creatinine 1.6, and glucose 111. IMPRESSION: 1. Hematoma postoperatively, likely secondary to the combination of aspirin and Brilinta. Hematoma is soft. There is no indication for surgical intervention. 2. Dual-chamber implantable cardioverter-defibrillator with normal function. No signs of infection. 3. Coronary artery disease. No evidence of acute coronary syndrome. 4. Polymorphic ventricular tachycardia. Implantable cardioverter-defibrillator in place. 5. Hypertension. Blood pressure mildly elevated today, possibly related to pain. RECOMMEND: 1. A 10-pound sandbag to his ICD incision site throughout the day today and tonight. 2. Pain control with codeine and morphine as needed. 3. Hold Brilinta. The Emergency Department discussed the case with Dr. Sahu, who recommended holding his Brilinta. 4. I have discussed the clinical course and treatment plan at length with the patient and his mother. Multiple questions answered to their satisfaction. Job ID: [id number] [facility]
--- NOTE | 2019-11-17 14:39 | PDOC.HHP ---
Hospitalist HPI - History of Present Illness Shoulder pain History of Present Illness: Patient is a 49 year old male with recent AICD placement 11/16 who presents to ED with anterior chest wall hematoma at surgical site, was expanding at first in ED but controlled with pressure dressing and EP physician notified who will come evaluate for hematoma evacuation in AM, patient complains of chest wall pain but no substernal pain, no SOB, no palpiatations, request home meds be restarted. Hospitalist ROS - Review of Systems Constitutional: denies: fever, chills, sweats, weakness, malaise, other Eyes: denies: pain, vision change, conjunctivae inflammation, eyelid inflammation, redness, other ENT: denies: ear pain, ear discharge, nose pain, nose discharge, nose congestion , mouth pain, mouth swelling, throat pain, throat swelling, other Respiratory: denies: cough, dry, shortness of breath, hemoptysis, SOB with excertion, pleuritic pain, sputum, wheezing, other Cardiovascular: reports: other (chest wall pain and swelling). denies: chest pain, palpitations, orthopnea, paroxysmal noc. dyspnea, edema, light headedness Gastrointestinal: denies: nausea, vomiting, abdominal pain, diarrhea, constipation, melena, hematochezia, other Genitourinary: denies: dysuria, frequency, incontinence, hematuria, retention, other Musculoskeletal: denies: neck pain, shoulder pain, arm pain, back pain, hand pain, leg pain, foot pain, other Skin: denies: rash, lesions, taniya, bruising, other Neurological: denies: weakness, numbness, incoordination, change in speech, confusion, seizures, other All other systems reviewed; all pertinent +/- noted in HPI/Subj - Medication Medications: Active Medications Generic Name Dose Route Start Last Admin Trade Name Freq PRN Reason Stop Dose Admin Acetaminophen/Codeine Phosphate 1 tab 11/17/19 04:17 11/17/19 10:03 Tylenol #3 PO 1 tab Q4H PRN Administration Pain Carvedilol 12.5 mg 11/17/19 08:00 11/17/19 08:56 Coreg PO Not Given BID-WM NIMA Clonidine 0.2 mg 11/17/19 09:00 11/17/19 08:55 Yoiniszs-Wgz-2 TD Not Given Q7DAYS NIMA Minoxidil 5 mg 11/17/19 09:00 11/17/19 08:57 Minoxidil PO Not Given DAILY [facility] Pantoprazole Sodium 40 mg 11/17/19 09:00 11/17/19 08:57 Protonix PO Not Given DAILY [facility] Polyethylene Glycol 17 gm 11/17/19 09:00 11/17/19 08:58 Miralax PO Not Given DAILY [facility] Spironolactone 25 mg 11/17/19 09:00 11/17/19 08:57 Aldactone PO Not Given 0900 [facility] Hospitalist History - Past Medical History Other Medical History: htn, diastolic chf - Past Surgical History Past Surgical History: reports: no pertinent history - Family History Family History: reports: no pertinent history - Social History Smoking Status: Never smoker Alcohol: reports: None Drugs: reports: none - Exam General Appearance: NAD, awake alert Eye: PERRL, anicteric sclera ENT: normocephalic atraumatic, no oropharyngeal lesions, moist mucosa Neck: supple, symmetric, no JVD, no thyromegaly, no lymphadenopathy, no carotid bruit Heart: RRR, no murmur, no gallops, no rubs, normal peripheral pulses Heart - other findings: chest wall L upper quadrant pressure dressing with no weeping or oozing. Respiratory: CTAB, no wheezes, no rales, no ronchi, normal chest expansion, no tachypnea, normal percussion Gastrointestinal: soft, non-tender, non-distended, normal bowel sounds, no palpable masses, no hepatomegaly, no splenomegaly, no bruit Extremities: no cyanosis, no clubbing, no edema Skin: normal turgor, no lesions, no rashes Neurological: cranial nerve grossly intact, normal sensation to touch, no weakness, no focal deficits, no new deficit Musculoskeletal: normal tone, normal strength, no muscle wasting Psychiatric: normal affect, normal behavior, A&O x 3 Hospitalist Results - Labs Result Diagrams: 11/17/19 04:52 11/16/19 18:21 Lab results: WBC 7.9 thou/uL (4.8-10.8) 11/17/19 04:52 Hgb 10.7 g/dL (14.0-18.0) L 11/17/19 04:52 Hct 32.9 % (42.0-52.0) L 11/17/19 04:52 MCV 86.4 fL (78.0-98.0) 11/17/19 04:52 Plt Count 229 thou/uL (130-400) 11/17/19 04:52 Neutrophils % 72.4 % (42.0-75.0) 11/17/19 04:52 Sodium 138 mmol/L (136-145) 11/16/19 18:21 Potassium 4.0 mmol/L (3.5-5.1) 11/16/19 18:21 Chloride 104 mmol/L (98-107) 11/16/19 18:21 Carbon Dioxide 24 mmol/L (22-29) 11/16/19 18:21 BUN 20 mg/dL (8.4-25.7) 11/16/19 18:21 Creatinine 1.61 mg/dL (0.7-1.3) H 11/16/19 18:21 Glucose 111 mg/dL (70-105) H 11/16/19 18:21 Calcium 8.8 mg/dL (7.8-10.44) 11/16/19 18:21 Hospitalist H&P A/P - Plan Plan: # chest wall hematoma - secondary to recent AICD placement, continue pressure dressing and resume home meds, will be seen by EP service in [place]. # CKD 3 # HTN # chronic diastolic heart failure - euvolemic on my exam
[2019-11-17] MEDS ORDERED: Simvastatin 40 MG TAB PO SCH (21:00)
[2019-11-18] MEDS: Acetaminophen/Codeine 30-300mg Tablet PO PRN (03:25)
[2019-11-18] MEDS: Polyethylene Glycol 3350 17 GM Packet PO SCH (08:37)
[2019-11-18] MEDS: Carvedilol 6.25 MG TAB PO SCH (08:37)
[2019-11-18] MEDS: Spironolactone 25 MG TAB PO SCH (08:37)
[2019-11-18] MEDS: Minoxidil 2.5 MG TAB PO SCH (08:37)
--- NOTE | 2019-11-18 09:48 | PRG ---
DATE OF SERVICE: 11/18/2019 SUBJECTIVE: Feels better today. No chest discomfort, dyspnea, syncope, or falls. OBJECTIVE: VITAL SIGNS: Afebrile. Blood pressure 145/89, pulse 90, respiratory rate 12, oxygen saturation 97% on room air. HEENT: No lesions. Sclerae clear. SKIN: Hematoma over his ICD has improved. It is distributed more laterally. Incision is intact. There is no evidence of breakdown. No tension on the incision. IMPRESSION: 1. Postoperative hematoma likely secondary to aspirin and Brilinta, improved. We have held Brilinta. 2. Syncope. 3. Polymorphic ventricular tachycardia. 4. Coronary artery disease with recent drug-eluting stent in his left posterolateral branch. PLAN: 1. Discontinue Brilinta for now. 2. Continue aspirin. 3. Continue 10-pound sandbag throughout the day today. 4. Okay to discharge mid afternoon from Cardiac electrophysiology standpoint. He will follow up with our office next week. We will call him for an appointment. Job ID: [id number]
--- NOTE | 2019-11-18 10:55 | PDOC.EVN ---
Event Note - Event Note Event Note: LATE ENTRY NOTE Patient was seen 11/17. Reports he was doing well. He was told to place a sandbag on his left shoulder for the hematoma. Patient was not interested in receiving hydralazine since it caused kidney damage in the past and wants to take whatever Dr. Marie suggested. Exam: Vitals stable LUE: mild swelling noted. Deferred active ROM CVS: RRR, no murmurs, rubs, gallops Lungs: CTAB #Hematoma s/p AICD placement #CAD #Hypertension - per cardiology monitor overnight - hold brilinta - continue aspirin - continue clonidine patch, coreg spironolactone
[2019-11-18 11:10] VITALS: BP 149/81; TEMP 98.2
--- NOTE | 2019-11-19 14:21 | DIS ---
DATE OF ADMISSION: 11/16/2019 DATE OF DISCHARGE: 11/18/2019 DISCHARGE DISPOSITION: Home. PRIMARY DISCHARGE DIAGNOSIS: Hematoma at the site of recent automatic implantable cardioverter-defibrillator implantation in the left infraclavicular area. SECONDARY DISCHARGE DIAGNOSES: Hypertension, diastolic congestive heart failure, and coronary artery disease with recent stent. PROCEDURES DONE DURING HOSPITALIZATION: The patient has had ultrasound of the automatic implantable cardioverter-defibrillator implantation site, which revealed a 5.9 cm soft tissue hematoma near the defibrillator generator site on the left chest wall. H and H 11 and 33, platelet count 229. PT and INR 14 and 1.1, PTT 30. BUN 20, creatinine 1.6. INPATIENT CONSULT: Dr. Marie for Electrophysiology. DISCHARGE MEDICATIONS: 1. Aspirin 81 mg p.o. daily. 2. Tylenol No.3 q.4 hourly p.r.n. 3. Coreg 12.5 mg twice daily. 4. Clonidine transdermal patch 0.2 mg once weekly. 5. Minoxidil 5 mg daily. 6. Entresto 49/51 mg p.o. 1 tablet twice daily. 7. Zocor 40 mg p.o. at bedtime. 8. Spironolactone 25 mg p.o. daily. ALLERGIES: PENICILLIN. DISCHARGE PLAN: The patient to follow up with Dr. Marie on 11/19/2019, to follow up with Dr. Sahu on 11/20/2019. BRIEF COURSE DURING HOSPITALIZATION: The patient initially came in with swelling at the AICD insertion site. This was placed 5 days back. He has had a history of polymorphic ventricular tachycardia. The patient also has had placement of a drug-eluting stent with coronary artery disease prior to AICD placement. He was on Brilinta and aspirin. He has had a 10-pound sandbag placed on his ICD insertion site, which controlled his further swelling and bleeding into the AICD implantation site. His pain and swelling had significantly decreased at the time of discharge. He was cleared by Dr. Marie for discharge today. The patient needs to continue aspirin only. He has followup on the , to see Dr. Marie and on the 4th of this month to see Dr. Sahu. Brilinta will be added based on clinical progress. He is otherwise hemodynamically stable and will be shortly discharged home. Please note, I have seen and examined the patient on the day of discharge. Job ID: [id number]
== END 2019-11-18 12:03 | disposition home or self-care (01) ==
LOC: ERS 17:42 → SURG B 20:07
PROVIDERS: ADMIT Internal Medicine; ATTEND Internal Medicine
DX: I97.638 Postprocedural hematoma of a circulatory system organ or structure following other circulatory system procedure (principal); I25.10 Atherosclerotic heart disease of native coronary artery without angina pectoris; I13.0 Hypertensive heart and chronic kidney disease with heart failure and stage 1 through stage 4 chronic kidney disease, or unspecified chronic kidney disease; N18.3 Chronic kidney disease, stage 3 (moderate); I50.32 Chronic diastolic (congestive) heart failure; I47.2 Ventricular tachycardia; Z88.0 Allergy status to penicillin; Z95.5 Presence of coronary angioplasty implant and graft
CPT/HCPCS: 36415; 80048; 85025; 85610; 85730; G0378

== ENCOUNTER 2019-12-06 18:00 | Outpatient (CLI) | payer BC | END 2019-12-06 18:01 | disposition home or self-care (01) | LOC: SLEEPLAB 18:00 | PROVIDERS: ATTEND Internal Medicine Critical Care Medicine | DX: G47.33 Obstructive sleep apnea (adult) (pediatric) (principal); R06.83 Snoring | CPT/HCPCS: 95806 ==

== ENCOUNTER 2019-12-12 22:33 | Emergency (ER) | payer BC ==
[~2019-12-12 22:33] MED LIST changes: +Amiodarone 150 MG/3 ML VIAL ONE; +Calcium Chloride 1 GM/10 ML Abboject SYRINGE ONE; +EPINEPHrine 1 MG/10 ML Abboject SYRINGE ONE; -Iopamidol-370 76% 500 ML 1 ML ONE; +Magnesium 5 GM/10 ML Abboject SYRINGE ONE; +Sodium Bicarb 50 MEQ/50 ML Abboject 8.4% SYRINGE ONE
== END 2019-12-12 23:19 | disposition expired ==
LOC: ERS 22:33
DX: I46.9 Cardiac arrest, cause unspecified (principal); I11.0 Hypertensive heart disease with heart failure; I50.9 Heart failure, unspecified; E11.9 Type 2 diabetes mellitus without complications
CPT/HCPCS: 31500; 92950; 96374; 96375; 96376; J0171; J0282; J2997; J3475